=== PATIENT | female | born 1970 | race Caucasian/White ===

== ENCOUNTER → 2017-01-02 | Outpatient (CLI) | payer MEDICARE ==
[~2017-01-02] MED LIST: ****K-Phos500 MG PO; ALLERGY MEDICAT25 MG PO; AMBIEN5 MG PO; AMITRIPTYLINE10 MG PO; AMLODIPINE BESYL5 MG PO; AMOXICILLIN500 M1 PO; AMOXIL500 MG PO; ARTHRITIS PAI42.5 GM TP; ASPIR-LOW81 MG PO; ASPIRIN FOR CHI81 MG PO; ASPIRIN PO; ASPIRIN81 M1 PO; ATIVAN0.5 MG; ATIVAN0.5 MG PO; AUGMENTIN 875875 MG PO; AVELOX400 MG PO; BACTRIM DS 8001 TA1 PO; BACTROBAN2% TP; BENADRYL25 M1 PO; BENADRYL25 M2 PO; BENADRYL25 MG PO; BUSPAR15 MG PO; BUSPIRONE HCL10 MG PO; BUSPIRONE10 MG PO; CIPRO250 MG PO; CIPRO500 MG PO; CIPRODEX 0.3%-7.5 ML OT; CIPROFLOXACIN250 MG PO; CIPROFLOXACIN500 MG PO; CLEOCIN HCL150 MG PO; CLEOCIN150 MG PO; COMPAZINE10 MG PO; COUMADIN4 M2 PO; CYCLOBENZAPRINE10 MG PO; DARVOCET N 1001 TAB PO; DIFLUCAN150 MG PO; Depakote250 MG PO; EC NAPROSYN375 MG PO; EFFEXOR PO; ESTROVEN; ESTROVEN PO; FLAGYL500 MG PO; FLEXERIL10 MG PO; FLORASTOR250 MG PO; FLUCONAZOLE100 MG PO; FOLIC ACID1 MG PO; GABAPENTIN300 MG PO; HEPARIN SC; HEPARIN SOD IV; HYDROCODONE BIT1 T11 PO; IMODIUM2 MG PO; KAYEXALATE15 GM/60 M; KEFLEX 500 MG E2 CAP PO; KEFLEX500 MG PO; LACTAID1 TAB; LACTAID1 TAB PO; LACTAID3000 U PO; LASIX40 MG PO; LEVAQUIN250 M1 PO; LEVOFLOXACIN500 MG PO; LEXAPRO20 MG PO; LIPITOR40 MG PO; LOMOTIL 0.025 M1 TA1 PO; LOMOTIL,LONOX 01 TAB PO; LORAZEPAM0.5 MG PO; MACROBID100 M1 PO; MANNITOL IV; MAPAP325 MG PO; MASON NATURAL2000 IU PO; MEDROL DOSEPAK4 MG PO; MELATONIN3 MG PO; METHOCARBAMOL750 M1 PO; MIRALAX POWDER17 G1 PO; MIRALAX POWDER255 GM PO; NAPROSYN375 MG PO; NATURE'S BLEND F1 MG PO; NEPHRO-VITE1 TA1 PO; NEURONTIN100 MG PO; NEURONTIN300 MG PO; NICODERM C21 MG/242 TD; NICOTINE T21 MG/24 H T; NORCO 5-325 TA1 EACH PO; NORMAL SALINE F10 ML IV; NYSTATIN60 GM T; OMEPRAZOLE D/R20 MG PO; ONDANSETRON4 MG PO; OXYCODONE AND A1 T13 PO; PERCOCET 325 MG1 TA2 PO; PERCOCET 325 MG1 TA5 PO; PHENERGAN25 M1 PO; PHENERGAN25 M3 PO; PRILOSEC20 MG PO; PROTONIX40 MG PO; PROZAC10 MG PO; RENVELA800 MG PO; RITE AID BRAND650 MG PO; TINACTIN T; TOBREX OPHTH S2.5 ML OPH; TORADOL10 MG PO; TYLENOL W/CODEI1 TA2 PO; TYLENOL325 M1 PO; TYLENOL325 MG R; ULTRAM50 MG PO; VICODIN 5/500 505 MG PO; VICODIN 500 MG-1 TAB PO; VITAMIN D32000 I1 PO; XARE20MG PO; ZOFRAN ODT4 MG SL; ZOFRAN2 MG/ML IV; ZOFRAN4 MG PO; ZOSYN 2/0.252.25 GM IV; ZYVOX600 MG PO; Zofran4 MG PO; [UNRECOGNIZED DRUG - OTHER]; [UNRECOGNIZED DRUG - OTHER] PO; [UNRECOGNIZED DRUG - OTHER] PO; [UNRECOGNIZED DRUG - OTHER] TP; [UNRECOGNIZED DRUG - REMARK] IV
--- NOTE | ~2017-01-02 | WRIGHTHP ---
[place], [place] PATIENT HISTORY AND PHYSICAL EXAM [id number] UNIT #: [id number] ROOM: DOCTOR: NATHANAEL TINSLEY M.D. BIRTHDATE: [birth year] DOS: 01/02/2017 This is a new wound care evaluation. CHIEF COMPLAINT: Pressure ulcers of the buttock area. HISTORY OF PRESENT ILLNESS: This is a 46-year-old female with a history of spina bifida who apparently was admitted to [facility] for electrolyte abnormalities. She apparently had missed a couple of episodes of dialysis and had been transferred to [facility] for further management. During her stay there, she had seizures and according to the patient, had developed new pressure ulcers. She says she did not have them when she was admitted, but she states she was lying in bed most of the time and these wounds have started since then, so they have been present for approximately 2 weeks now. She has been using Calmoseptine on them without any improvement. PAST MEDICAL HISTORY: Significant for history of DVT of the left lower extremity, hyperlipidemia, history of sinusitis, history of abdominal hernia, GERD, chronic renal failure on dialysis Monday, Monday, and Monday. She has a history of noncompliance. She has a history of chronic UTIs. She has a history of kidney stones. She has had pressure ulcers in the past that were according to the patient requiring surgical flaps, also not just of the buttock area, but also of the labia area. She has had plastic surgery there as well. She has a history of chronic lumbar pain and a history of spina bifida, osteoarthritis, a history of TIA, history of insomnia, anxiety, depression. She has a urostomy, abdominal hernia repair, spinal fusion, SUBSTANCE ABUSE SERVICES DIRECTOR shunt nephrectomy, cholecystectomy, AV fistula and a colostomy. She had several of her surgeries done according to the patient with her skin flaps for her wounds done at [place]. FAMILY HISTORY: Significant for cancer and hypertension as well as heart disease in her father. SOCIAL HISTORY: She is a current everyday smoker. She is single, does not drink alcohol and she lives alone. She does have home health who comes in, she says twice a day, it is not quite clear, if they are RNs or aides who come in. REVIEW OF SYSTEMS: She says she does not have any feeling in the buttock area, did complaints of a poor appetite. Denies any chest pains or shortness of breath. No nausea or vomiting. She is alone. During the day most of the time, she says she sits in her wheelchair for several hours all day by herself. She says she is able to manage to maneuver her body at times while she is in the chair, but it does sound like she has very limited mobility. ALLERGIES: Her allergies are multiple and include A and D OINTMENT, CODEINE, EFFEXOR, GOLD UREÑA, IBUPROFEN, OXYCODONE, TAPE, all except paper tape, TEMAZEPAM AND VANCOMYCIN. MEDICATIONS FOLLOWS: She is on adult low dose aspirin 81 daily, Lipitor 20 daily, Ambien 5 mg at bedtime, and Lexapro 20 daily. [place], [place] PATIENT HISTORY AND PHYSICAL EXAM NAME: CORINNE METZ UNIT #: [id number] ROOM: DOCTOR: NATHANAEL TINSLEY M.D. BIRTHDATE: [birth year] PHYSICAL EXAMINATION: GENERAL: This lady is in no acute distress. She appears chronically ill and debilitated, pleasant and cooperative. HEENT: I do not appreciate any JVD. LUNGS: Clear. CARDIOVASCULAR: S1, S2, regular rate and rhythm. ABDOMEN: Soft. EXTREMITIES: She has some edema noted of the left lower extremity. She says this is chronic and not unusual and there is no calf pain. She has several wounds that are noted on the buttock area and one is on the right gluteus, it is measuring 1 x 0.4 x 0.1, another one that is distally more is 1.1 x 2 x 0.1, another one that is measuring 0.5 x 2 x 0.1 that is in the labial area, left labia area. The other one is on the right labial area is 0.5 x 2.5 x 0.1. On the left gluteal fold, it is measuring 2.6 x 1 x 0.1. There is a moderate amount of fibrin slough present on the left gluteal fold wound. There is minimal fibrin slough present in the right gluteal wounds. There is also some fibrin slough present on some of the labial wounds as well. A debridement was done of the larger gluteal wound on the left side. This is a selective debridement only. The tissue removed was fibrin and slough. This was accomplished with a curette. There was really minimal bleeding. Post-debridement measurements are unchanged except for the depth of 0.2. LABORATORY DATA: Her last white count, this was done in early December was 16.9, hemoglobin was 12, and platelets are 270. She had sodium of 155, bicarb of 8. Her BUN was 148. Her creatinine was 8.24. The glucose was 80. Lactic acid levels were 2.7. I do not see an albumin at all. ASSESSMENT AND PLAN: Multiple pressure ulcers at least stage 3. We cannot entirely see the base of the wound on the left buttock area, so I would classify this one is unstageable, but most of them appear to be at least stage 3. We will use TheraHoney for the areas for now. I think we can get a foam on the wounds on the buttock and these could be changed every other day. The other, we can just apply some TheraHoney to the wounds on the labial area. I would like to get the records from her surgeries to see what they have done for her. She is alone most of the time during the day and this is going to be a challenge on trying to get her offloaded. She does not have a special mattress, so we will go ahead and order a low air loss mattress and see if we can get her a Roho cushion for her wheelchair, but offloading is definitely going to be a challenge, so we may have to discuss with her other options regarding this for further management if we have a hard time getting these wounds healed. The patient is to follow up with us in 1 week. [place], [place] PATIENT HISTORY AND PHYSICAL EXAM NAME: CORINNE METZ UNIT #: [id number] ROOM: DOCTOR: NATHANAEL TINSLEY M.D. BIRTHDATE: [birth year] NATHANAEL TINSLEY MD CM:HISPHYS:PATIENT HISTORY AND PHYSICAL EXAMINATION [id number] NATHANAEL TINSLEY M.D. 01/02/172010 interface
== END ==
LOC: WOUNDCARE 10:08
DX: L89.323 Pressure ulcer of left buttock, stage 3 (principal); L89.313 Pressure ulcer of right buttock, stage 3; Q05.9 Spina bifida, unspecified; K21.9 Gastro-esophageal reflux disease without esophagitis; E78.5 Hyperlipidemia, unspecified; M19.90 Unspecified osteoarthritis, unspecified site; F41.9 Anxiety disorder, unspecified; F32.9 Major depressive disorder, single episode, unspecified; N18.9 Chronic kidney disease, unspecified; F17.210 Nicotine dependence, cigarettes, uncomplicated; Z99.2 Dependence on renal dialysis; Z86.73 Personal history of transient ischemic attack (TIA), and cerebral infarction without residual deficits; Z86.718 Personal history of other venous thrombosis and embolism

== ENCOUNTER 2017-01-06 12:25 | Inpatient (IN) | payer MEDICARE ==
[~2017-01-06] VITALS: Ht 134.6 cm; Wt 33.2 kg
--- NOTE | ~2017-01-06 | CON ---
[place], [place] REPORT OF CONSULTATION NAME: CORINNE METZ UNIT #: [id number] ROOM: 507 DOCTOR: PHI MURO MD BIRTHDATE: [birth year] DOS: 01/07/2017 HISTORY OF PRESENT ILLNESS: Management of dialysis. The patient is a 46-year-old female. She is known to our service. She has a history of end-stage renal disease, thought to be related to chronic obstructive neuropathy due to her spina bifida. The patient has scheduled dialysis Monday and Monday at the [facility]. Her access is right upper extremity AV fistula. The patient has noncompliance and has missed treatments very frequently. In fact, she has not been dialyzed it seems in about 2 weeks. I had discussed with the dialysis nurse this morning to have the patient dialyze since she missed multiple treatments and the patient refused this morning. She had a recent admission to [facility] which she was seen by our service at that time and she actually has not come back to the outpatient clinic since. Apparently, the patient was sent in the hospital due to concerns about her pressure ulcers. She has been started on antibiotics. She told me she felt fine otherwise. She denied nausea, vomiting, or shortness of breath. She is chronically bed bound. She does have a history of a colostomy and has large stool outputs at times. When she presented, she had mild hyperkalemia and metabolic acidosis. ALLERGIES: LISTED TO VANCOMYCIN, TAPE, CODEINE. MEDICATIONS: Reviewed. It is not clear if she is compliant with her home prescribed medications. PAST MEDICAL HISTORY: 1. End-stage renal disease, details as above. 2. Osteoarthritis. 3. Chronic back pain. 4. History of DVT. 5. Depression. 6. Fatigue. 7. GERD. 8. History of GI bleed and anemia. 9. History of TIA. 10. The patient is chronically bed bound due to spina bifida. 11. Hyperlipidemia. 12. Insomnia. 13. Kidney stones. 14. Vitamin D deficiency. 15. Back surgery. 16. Cholecystectomy. 17. Colostomy. 18. History of unilateral nephrectomy on the right. 19. History of urostomy. 20. History of foot surgery. 21. CUSTOMER SOLUTIONS ARCHITECT shunt. FAMILY HISTORY: Negative for chronic kidney disease. Otherwise, noncontributory. [place], [place] REPORT OF CONSULTATION NAME: CORINNE METZ UNIT #: [id number] ROOM: 507 DOCTOR: PHI MURO MD BIRTHDATE: [birth year] SOCIAL HISTORY: No alcohol or illicit drugs. She does have a history of tobacco abuse. REVIEW OF SYSTEMS: As per HPI. Otherwise, a 10-point review of systems was reviewed and was negative. PHYSICAL EXAMINATION: VITAL SIGNS: Temperature is 98.2, pulse 80, respiratory rate 18, blood pressure 126/76. GENERAL: She is awake, alert, resting comfortably, in no acute distress. HEENT: Shows no JVD. Sclerae are anicteric. Mucous membranes were moist. Pharynx was clear. NECK: Supple. Trachea is midline. There is no lymphadenopathy. There is no thyromegaly. LUNGS: Diminished breath sounds. No appreciable wheezes. No tactile fremitus. She is not using accessory muscles of respiration. HEART: Normal S1, S2. No rub, thrill, or gallop. ABDOMEN: Soft, nontender. There is no organomegaly or rigidity. There is no rebound or guarding. EXTREMITIES: Had trace edema. There is no lower extremity lymphadenopathy. Distal pulses were present. SKIN: Showed no overt rash. There is no purpura. Skin temperature was warm. NEUROLOGIC: She was awake, alert, and following commands. LABORATORY DATA: Hemoglobin 10.9, white count of 5.9, platelets of 199. BUN 68, creatinine 6.6, sodium 143, potassium 5.7, CO2 of 14, calcium 8.1, phosphorus 6.0, magnesium 1.9, albumin of 2.1. IMPRESSION: 1. End-stage renal disease, on hemodialysis, prescribed Monday and Monday through an upper extremity arteriovenous fistula. 2. Metabolic acidosis. 3. Decubitus ulcers. 4. Anemia of chronic disease. 5. History of spina bifida. 6. Noncompliance, which is a continued issue. PLAN: 1. The patient has refused dialysis today. She continues to refuse and states that today is not her normal day. I explained to her that I do not advice this and she continues to be adamant that she did not want dialysis because it was not her day and she was not able to have her Emla cream for the treatment. Hopefully, she will be agreeable to treatment on Monday. 2. In regards to her hyperkalemia, she does have a significant metabolic acidosis. I will order oral bicarbonate tablets and give 1 L of bicarbonate infusion to see if this helps correct both those items. 3. Placed on a renal diet. 4. Dose meds for dialysis dependent renal failure. 5. Farnaz forward, I am not clear what more we can do for this patient. She [place], [place] REPORT OF CONSULTATION NAME: CORINNE METZ Juan UNIT #: [id number] ROOM: 507 DOCTOR: JINA GROVE,PHI Mooney BIRTHDATE: [birth year] continues to be noncompliant and has a poor understanding of her situation. We will continue to be available to provide supportive care while she is in the hospital. Thank you for this consultation. PHI MURO MD CM:CONSTR:REPORT OF CONSULTATION 1520 01/07/17 1619 interface
--- NOTE | ~2017-01-06 | PR ---
[place], [place] PROGRESS NOTE NAME: CORINNE METZ UNIT #: [id number] ROOM: 507 DOCTOR: PHI MURO MD BIRTHDATE: [birth year] DOS: SUBJECTIVE: The patient was seen and examined. She is awake and alert. She feels about the same. She states she feels tired and cold. She is receiving her IV fluids I have ordered yesterday. She did not have laboratory data today. PHYSICAL EXAMINATION: VITAL SIGNS: Showed a temperature of 98.2, pulse 86, respiratory rate 18, blood pressure 126/76. HEENT: Shows no jugular venous distention. LUNGS: Diminished breath sounds. No wheeze. HEART: Normal S1, S2. ABDOMEN: Soft, nontender. EXTREMITIES: Trace edema. SKIN: Showed no rash as noted. LABORATORY DATA: Not obtained from today. Hemoglobin from yesterday 10.9, potassium 5.7, carbon dioxide 14. IMPRESSION AND PLAN: 1. End-stage renal disease, on hemodialysis Monday and Monday. The patient remains noncompliant. I explained to her that I recommend that she have dialysis tomorrow. She did not seem that she still was agreeable to this. I explained to her the dangers with her hyperkalemia and acidosis and elevated BUN and creatinine and she stated to me that she will not have dialysis "cold turkey." I was not clear which she meant by this. She did indicate to me that she needs to have her Amylac cream placed before dialysis starts. We will attempt to see if we can have this arranged for awhile in the hospital. 2. Anemia. Continue to give as needed, erythropoietin stimulating agents with dialysis as able. 3. Metabolic acidosis with mild hyperkalemia. Hopefully, we can correct this with dialysis. She did receive a liter of a bicarb infusion to help correct this. Follow a low potassium diet while in the hospital. She is on oral bicarb tablets as well. 4. Suspected wound infection. Antibiotics as per the primary service. [place], [place] PROGRESS NOTE NAME: CORINNE METZ UNIT #: [id number] ROOM: 507 DOCTOR: PHI MURO MD BIRTHDATE: [birth year] PHI MURO MD CM:PNTRANS [id number] PHI MURO MD 01/08/17 1808 interface
[2017-01-06 12:35] VITALS: BP 108/71
[2017-01-06 13:00] VITALS: BP 122/72
[2017-01-06] MEDS ORDERED: RENVELA800 MG PO (15:58)
[2017-01-06 16:00] VITALS: BP 138/73
[2017-01-06] MEDS ORDERED: ACETAMINOPHEN-H1 TA2 PO (16:00)
[2017-01-06] MEDS ORDERED: ATORVASTATIN CA40 M1 PO (16:00)
[2017-01-06] MEDS ORDERED: NATURE'S BLEND F1 MG PO (16:02)
[2017-01-06] MEDS ORDERED: VITAMIN D50000 I3 PO (16:02)
[2017-01-06] MEDS ORDERED: BAYER ASPIRIN C81 MG PO (16:02)
[2017-01-06] MEDS ORDERED: RENA-VITE1 TAB PO (16:04)
[2017-01-06 18:13] LABS: BASO % 0.6 % (0.0-1.0); EOS # 0.1 10*3/uL (0.0-0.4); EOS % 1.7 % (1.0-4.0); HEMATOCRIT 34.8 % (37.0-47.0); HEMOGLOBIN 10.7 g/dl (12.0-16.0); IG # 0.1 10*3/uL (0.0-0.1); LYMPH # 1.1 10*3/uL (1.3-4.4); LYMPH % 15.2 % (27.0-41.0); MEAN CELL VOLUME 90.6 fl (81.0-99.0); MEAN CORPUSCULAR HGB 27.9 pg (27.0-31.0); MEAN CORPUSCULAR HGB CONC 30.7 g/dl (33.0-37.0); MEAN PLATELET VOLUME 10.1 fl (9.6-12.3); MONO # 0.5 10*3/uL (0.1-1.0); MONO % 6.6 % (3.0-9.0); NEUT # 5.2 10*3/uL (2.3-7.9); NEUT % 75.2 % (47.0-73.0); PLATELET COUNT AUTOMATED 187 10*3/uL (130-400); RED BLOOD COUNT 3.84 10*6/uL (4.10-5.10); RED CELL DISTRI WIDTH 16.8 % (0-14.5)
[2017-01-06 18:30] LABS: BILIRUBIN, TOTAL 0.2 mg/dl (0.2-1.0); CKMB 1.7 ng/ml (0.5-3.6); CPK 32 U/L (26-192); POTASSIUM 5.6 mmol/L (3.5-5.1); TOTAL PROTEIN 5.6 gm/dL (6.4-8.2)
[2017-01-06 18:31] LABS: TROPONIN I < 0.015 ng/ml (<0.045)
[2017-01-06 20:00] VITALS: BP 127/73
[2017-01-07] VITALS: BP 130/77
[2017-01-07 00:20] LABS: CKMB 1.5 ng/ml (0.5-3.6); CPK 28 U/L (26-192); TROPONIN I < 0.015 ng/ml (<0.045)
[2017-01-07 06:22] LABS: BASO % 0.7 % (0.0-1.0); EOS # 0.2 10*3/uL (0.0-0.4); EOS % 2.9 % (1.0-4.0); HEMATOCRIT 35.8 % (37.0-47.0); HEMOGLOBIN 10.9 g/dl (12.0-16.0); LYMPH # 1.3 10*3/uL (1.3-4.4); MEAN CELL VOLUME 91.6 fl (81.0-99.0); MEAN CORPUSCULAR HGB 27.9 pg (27.0-31.0); MEAN CORPUSCULAR HGB CONC 30.4 g/dl (33.0-37.0); MEAN PLATELET VOLUME 10.4 fl (9.6-12.3); MONO # 0.5 10*3/uL (0.1-1.0); MONO % 7.8 % (3.0-9.0); NEUT # 3.9 10*3/uL (2.3-7.9); NEUT % 66.3 % (47.0-73.0); PLATELET COUNT AUTOMATED 199 10*3/uL (130-400); RED BLOOD COUNT 3.91 10*6/uL (4.10-5.10); RED CELL DISTRI WIDTH 17.1 % (0-14.5); WHITE BLOOD COUNT 5.9 10*3/uL (4.8-10.8)
[2017-01-07 06:31] LABS: ALBUMIN 2.1 gm/dl (3.1-4.5); BILIRUBIN, TOTAL 0.3 mg/dl (0.2-1.0); FREE T4 0.91 ng/dl (0.76-1.46); MAGNESIUM 1.9 mg/dL (1.5-2.1); POTASSIUM 5.7 mmol/L (3.5-5.1); TOTAL PROTEIN 5.4 gm/dL (6.4-8.2)
[2017-01-07 06:34] LABS: CKMB 1.5 ng/ml (0.5-3.6); CPK 24 U/L (26-192)
[2017-01-07 06:35] LABS: TROPONIN I < 0.015 ng/ml (<0.045)
[2017-01-07 06:37] LABS: THYROID STIM HORMONE (HS) 2.68 uIU/ml (0.358-4.75)
[2017-01-07 06:52] LABS: INTERNATIONAL NORM RATIO 1.1 (2.0-3.5); PROTHROMBIN TIME 11.4 SECONDS (9.0-12.4)
[2017-01-07 07:17] LABS: HEMOGLOBIN A1c 4.4 % (4.8-5.6)
[2017-01-07 07:37] LABS: FOLIC ACID 21.77 ng/mL (>5.38)
[2017-01-07 08:00] VITALS: BP 136/72
[2017-01-07 12:00] VITALS: BP 126/76
[2017-01-07 16:00] VITALS: BP 114/63
[2017-01-07 20:00] VITALS: BP 141/87
[2017-01-08] VITALS: BP 124/77
[2017-01-08 08:00] VITALS: BP 126/76
[2017-01-08 12:00] VITALS: BP 130/62
[2017-01-08 16:00] VITALS: BP 126/76
== END 2017-01-08 17:33 | disposition home or self-care (01) | DRG 592 ==
LOC: ED 12:25 → 5E 12:54
PROVIDERS: Internal Medicine
DX: L89.159 Pressure ulcer of sacral region, unspecified stage (principal); N18.6 End stage renal disease; E43 Unspecified severe protein-calorie malnutrition; E87.2 Acidosis; Z68.1 Body mass index [BMI] 19.9 or less, adult; K21.9 Gastro-esophageal reflux disease without esophagitis; F32.9 Major depressive disorder, single episode, unspecified; F41.9 Anxiety disorder, unspecified; E78.5 Hyperlipidemia, unspecified; F17.210 Nicotine dependence, cigarettes, uncomplicated; G89.29 Other chronic pain; M54.9 Dorsalgia, unspecified; E87.5 Hyperkalemia; E83.39 Other disorders of phosphorus metabolism; D63.1 Anemia in chronic kidney disease; M19.90 Unspecified osteoarthritis, unspecified site; Z82.49 Family history of ischemic heart disease and other diseases of the circulatory system; Z86.73 Personal history of transient ischemic attack (TIA), and cerebral infarction without residual deficits; Z99.2 Dependence on renal dialysis; Z91.15 Patient's noncompliance with renal dialysis; Q05.9 Spina bifida, unspecified; Z90.5 Acquired absence of kidney; Z87.440 Personal history of urinary (tract) infections; Z90.49 Acquired absence of other specified parts of digestive tract; Z86.718 Personal history of other venous thrombosis and embolism; Z87.442 Personal history of urinary calculi; Z83.6 Family history of other diseases of the respiratory system; Z84.89 Family history of other specified conditions; Z88.1 Allergy status to other antibiotic agents; Z91.048 Other nonmedicinal substance allergy status; Z88.5 Allergy status to narcotic agent; Z88.8 Allergy status to other drugs, medicaments and biological substances; Z71.6 Tobacco abuse counseling; Z79.82 Long term (current) use of aspirin; Z79.899 Other long term (current) drug therapy

== ENCOUNTER → 2017-01-17 | Outpatient (CLI) | payer MEDICARE ==
[~2017-01-17] MED LIST changes: +ACETAMINOPHEN-H1 TA2 PO; +ATORVASTATIN CA40 M1 PO; +BAYER ASPIRIN C81 MG PO; +RENA-VITE1 TAB PO; +VITAMIN D50000 I3 PO
--- NOTE | ~2017-01-17 | PR ---
[place], [place] PROGRESS NOTE NAME: CORINNE METZ UNIT #: [id number] ROOM: DOCTOR: ALVINA ReynosoNATHANAEL BIRTHDATE: [birth year] DOS: 01/17/2017 This is a wound care followup. CHIEF COMPLAINT: Pressures ulcers of the buttock area and labial area. HISTORY OF PRESENT ILLNESS: A 46-year-old female with a history of spina bifida who has been seen one time in the Wound Clinic for pressure ulcers of the buttock and labial area that have been present for approximately 4 weeks now. They started out when she was in the hospital at [facility] and she has been to the Wound Clinic one time. We have advised TheraHoney and a foam dressing to be applied. She does have home health who changes them every other day. She does not have an air mattress for a cushion for her wheelchair. Her lower half of her body is immobile. She is unable to really move herself. Once she is in a seated positioned in the daytime, she stays like that for several hours until someone comes and moves her, although she does have some movement in her arms and is able to reposition her just a little minute miniscule movements she is able to do on her own. She was admitted to the hospital recently for bacteremia and has not been going to her scheduled dialysis all the time as has been scheduled. PHYSICAL EXAMINATION: VITAL SIGNS: As follows: Temp is 98.4, pulse is 66, respirations 18, blood pressure is 110/62. WOUND EXAMINATION: Several of the wounds just on glancing at them, they do appear improved. Wound #10 is on the right gluteal fold, it is measuring a little bit longer, 1.4 x 0.2 x 0.1, but it appears quite improved since last time. The wound on her right gluteus is measuring much smaller, it is 0.5 x 1.5 x 0.1 and there is really no visible necrotic tissue present. The wound #12 is also measuring smaller at 0.4 x 1.8 x 0.1. No visible necrotic tissue that is in the labial area. Wound #13, is measuring smaller at 0.3 x 1.3 x 0.1. Wound #9, is measuring a little bit larger, but does appear quite a bit improved from the last time I have seen it. The length is 2.6 x 1.5 x 0.1 and that measurement is including a smaller area next to it, but overall it looks really good. There is still some fibrin and slough moderate amount present. This area was debrided through subcutaneous tissue. The tissue removed was fibrin, slough and subcutaneous tissue. There was a moderate amount of bleeding that was controlled with pressure. Post-debridement measurements are unchanged. There was a moderate amount of bleeding that was controlled with pressure. Cetacaine spray was used for topical anesthesia and a timeout was conducted prior to the start of the procedure. ASSESSMENT AND PLAN: Multiple pressure ulcers, stage 2 and stage 3 that are definitely seem to be responding to the TheraHoney. We will continue with this dressing for now. There are no signs of an active infection clinically with any of the wounds. I did advise her to eat a healthy diet. She is to get blood work that has been ordered by her PCP, hopefully we will get the results soon about this. I did mention that if for some reason, the wounds stall or get worse if she would be inclined to going into a detention facility for a short period of time, so she can be properly offloaded. She is pretty adamant [place], [place] PROGRESS NOTE NAME: ISAÍASCORINNE A UNIT #: [id number] ROOM: DOCTOR: NATHANAEL TINSLEY M.D. BIRTHDATE: [birth year] about not wanting this at this time, so she does not wish to further discuss it at this time. We have ordered a low air loss mattress and Roho cushion for her, which had to go through the primary care to order it secondary to her insurance. Followup next week. NATHANAEL TINSLEY MD CM:AMADEO [id number] NATHANAEL TINSLEY M.D. 01/18/17 0134 interface
[2017-01-17 12:39] LABS: BASO # 0.1 10*3/uL (0.0-0.1); BASO % 0.9 % (0.0-1.0); EOS # 0.5 10*3/uL (0.0-0.4); EOS % 6.6 % (1.0-4.0); HEMATOCRIT 35.7 % (37.0-47.0); HEMOGLOBIN 11.1 g/dl (12.0-16.0); LYMPH # 1.1 10*3/uL (1.3-4.4); LYMPH % 14.2 % (27.0-41.0); MEAN CELL VOLUME 89.5 fl (81.0-99.0); MEAN CORPUSCULAR HGB 27.8 pg (27.0-31.0); MEAN CORPUSCULAR HGB CONC 31.1 g/dl (33.0-37.0); MEAN PLATELET VOLUME 11.9 fl (9.6-12.3); MONO # 0.4 10*3/uL (0.1-1.0); MONO % 5.2 % (3.0-9.0); NEUT # 5.6 10*3/uL (2.3-7.9); NEUT % 72.7 % (47.0-73.0); PLATELET COUNT AUTOMATED 150 10*3/uL (130-400); RED BLOOD COUNT 3.99 10*6/uL (4.10-5.10); RED CELL DISTRI WIDTH 16.8 % (0-14.5); WHITE BLOOD COUNT 7.7 10*3/uL (4.8-10.8)
[2017-01-17 13:10] LABS: ALBUMIN 2.2 gm/dl (3.1-4.5); BILIRUBIN, TOTAL 0.2 mg/dl (0.2-1.0); POTASSIUM 5.7 mmol/L (3.5-5.1); TOTAL PROTEIN 5.7 gm/dL (6.4-8.2)
== END | disposition home or self-care (01) ==
LOC: WOUNDCARE 10:12 → LAB 10:12
PROVIDERS: Nurse Practitioner Family
DX: N18.5 Chronic kidney disease, stage 5 (principal); L89.309 Pressure ulcer of unspecified buttock, unspecified stage; L03.90 Cellulitis, unspecified; Q05.9 Spina bifida, unspecified

== ENCOUNTER → 2017-02-08 | Outpatient (CLI) | payer MEDICARE ==
--- NOTE | ~2017-02-08 | PR ---
[place], [place] PROGRESS NOTE NAME: CORINNE METZ UNIT #: [id number] ROOM: DOCTOR: ALVINA ReynosoNATHANAEL BIRTHDATE: [birth year] DOS: 02/08/2017 WOUND CARE FOLLOWUP CHIEF COMPLAINT: Multiple pressure ulcers of the buttock and labial area. The patient has a history of spina bifida, who has had multiple pressure ulcers that were present for approximately the past 9 weeks now. She has only followed up sporadically in the Wound Clinic. She is a dialysis patient who lives by herself. She is pretty immobile and unable to get around by herself at home. She does have home health coming in every other day to help remove. She was said she was supposed to have an aide to help remove daily; however, she states that her landlord would not let them come into her house. This part is a bit unclear. We had ordered a Roho cushion for her and an air mattress; however, insurance did not approve it and we are waiting to see if we can get it from another medical facility or medical supply store. Hopefully, this will be arranged as soon as possible. She has no specific complaints. She said she has not been keeping up with dialysis and going as scheduled as she has been depressed lately and has been started on new antidepressants per PCP. She has no particular complaints with the wounds. We have not heard any issues from home health either. OBJECTIVE: VITAL SIGNS: As follows: She is afebrile, pulse is 88, respirations 18, blood pressure is 124/64. BACK: She has multiple wounds that are noted. There was a wound on the right gluteal area that appears to be epithelialized; wound #11, which is in the distal gluteal area is much improved at 0.5 x 1 x 0.1. There is no visible necrotic tissue present. There is an area on the left labia, which is also smaller and improving at 0.4 x 1 x 0.1. There was no necrotic tissue. Wound #13 is on the right labia and is also improving at 0.5 x 1.2 x 0.1. The left gluteal wound still fairly large, but also improving at 2.1 x 0.7 x 0.1. They are measuring the depth at 0.1, but I would say is slightly deeper at 0.15. There is a large amount of fibrin slough present. This wound was debrided last time. Debridement was done of this wound. The tissue removed was nonviable fibrin and slough only. There was [id number] amount of bleeding that was controlled with pressure. Post-debridement measurements are unchanged, except for the depth of 0.15. The curette was utilized. ASSESSMENT AND PLAN: Multiple pressure ulcers in this patient who is immobile and lives alone. We have discussed with her in the past about possibly a trial at [facility] to help with offloading; however, she was fairly adamant and had refused this. She has not followed up consistently in the wound clinic, but overall, most of her wounds are getting smaller. We will continue with the TheraHoney and foam dressings for the larger wounds on the gluteal area, TheraHoney to the labial area as before. There are no signs of infection. Hopefully, she will get her offloading devices send as soon as possible. She does have home health coming in for dressing changes. She did mention how her landlords refusing to have home health aides coming in to help her, so I will reach out to home health and see if they have anymore information regarding [place], [place] PROGRESS NOTE NAME: CORINNE METZ UNIT #: [id number] ROOM: DOCTOR: NATHANAEL TINSLEY M.D. BIRTHDATE: [birth year] this. Follow up with the wound clinic in 1 week. NATHANAEL TINSLEY MD CM:AMADEO [phone] NATHANAEL TINSLEY M.D. 02/09/17 0901 interface
== END ==
LOC: WOUNDCARE 01:16
DX: L89.322 Pressure ulcer of left buttock, stage 2 (principal); L89.313 Pressure ulcer of right buttock, stage 3; Q05.9 Spina bifida, unspecified; I48.91 Unspecified atrial fibrillation

== ENCOUNTER → 2017-02-15 | Outpatient (CLI) | payer MEDICARE ==
[~2017-02-15] MED LIST changes: +BUSPAR5 MG PO; +DESVENLAFAXINE50 M4 PO
--- NOTE | ~2017-02-15 | PR ---
[place], [place] PROGRESS NOTE NAME: [id number] UNIT #: [id number] ROOM: DOCTOR: ALVINA ReynosoNATHANAEL BIRTHDATE: [birth year] DOS: 02/15/2017 WOUND CARE FOLLOWUP CHIEF COMPLAINT: Multiple pressure ulcers of the buttocks and labial area. HISTORY OF PRESENT ILLNESS: The patient has a history of spina bifida. She has had multiple pressure ulcers for the past 10 weeks now. She has been following up in the Wound Clinic fairly consistently now for the past 3 weeks. She has no specific complaints regarding the wounds. She has not received the Roho cushion that we have ordered, which apparently there was some problem with her insurance. She did state that she is going to be getting a new wheelchair, so hopefully, this will help alleviate some of the pressure points as well. She has no other specific complaints regarding the wounds. She does report that her appetite is not good and she does not eat well. PHYSICAL EXAMINATION: VITAL SIGNS: Temperature is 98.2, pulse of 78, respirations 18, blood pressure is 122/80. EXTREMITIES: The wound #11, which is on the distal gluteus is measuring 0.3 x 1 x 0.1. It looks clean. There is no necrotic tissue. Wound #12 is also measuring smaller 0.4 x 0.8 x 0.1. Wound #13 is measuring 0.4 x 1.2 x 0.1 and wound #9 is measuring 1.6 x 0.8 x 0.1. There is still a moderate amount of fibrin slough present on this wound. The other wounds have clean bases. Debridement was done of this wound, which is in the left gluteus. The tissue removed was fibrin and slough. This was a selective debridement only. There was no bleeding. The patient tolerated the debridement well. Post-debridement measurements are unchanged. A curette was utilized. ASSESSMENT AND PLAN: Multiple pressure ulcers, which are slowly healing. Offloading is a challenge. We have ordered mattresses for her and a Roho cushion, which still has not been delivered to her house yet and hopefully, she will be able to get this soon. Most recent protein level was 5.7, albumin is 2.2. BUN is 73 and creatinine is 7.62. She is a renal dialysis patient. Multiple pressure ulcers, mostly stage II and stage III, most of them are clean. There is only one really with some necrotic tissue present. We will continue with RejiRossyeduardo since it seems to be improving the wounds slowly, but steadily. I encouraged the patient to also eat a healthy diet and do not skip dialysis appointments. The patient is to follow up in the Wound Clinic in one week. Hopefully, she will be able to get some of her offloading devices as soon as possible. [place], [place] PROGRESS NOTE NAME: CORINNE METZ UNIT #: [id number] ROOM: DOCTOR: NATHANAEL TINSLEY M.D. BIRTHDATE: [birth year] NATHANAEL TINSLEY MD CM:AMADEO [phone] NATHANAEL TINSLEY M.D. 02/16/17 1620 interface
== END ==
LOC: WOUNDCARE 01:11
DX: L89.323 Pressure ulcer of left buttock, stage 3 (principal); Q05.9 Spina bifida, unspecified

== ENCOUNTER 2017-02-16 12:23 | Emergency (ER) | payer MEDICARE ==
[~2017-02-16] VITALS: Ht 134.6 cm; Wt 29.9 kg
[2017-02-16 12:23] VITALS: BP 158/78
[~2017-02-16 12:23] MED LIST changes: -BUSPAR5 MG PO; -DESVENLAFAXINE50 M4 PO
[2017-02-16] MEDS ORDERED: BUSPAR5 MG PO (12:50)
[2017-02-16] MEDS ORDERED: DESVENLAFAXINE50 M4 PO (12:51)
[2017-02-16] MEDS ORDERED: OMEPRAZOLE D/R20 MG PO (12:53)
[2017-02-16 13:31] LABS: BASO % 0.5 % (0.0-1.0); EOS # 0.1 10*3/uL (0.0-0.4); EOS % 1.4 % (1.0-4.0); HEMATOCRIT 30.4 % (37.0-47.0); HEMOGLOBIN 9.4 g/dl (12.0-16.0); LYMPH % 11.8 % (27.0-41.0); MEAN CELL VOLUME 90.5 fl (81.0-99.0); MEAN CORPUSCULAR HGB CONC 30.9 g/dl (33.0-37.0); MONO # 0.4 10*3/uL (0.1-1.0); MONO % 4.6 % (3.0-9.0); NEUT # 6.9 10*3/uL (2.3-7.9); NEUT % 81.5 % (47.0-73.0); PLATELET COUNT AUTOMATED 169 10*3/uL (130-400); RED BLOOD COUNT 3.36 10*6/uL (4.10-5.10); RED CELL DISTRI WIDTH 19.4 % (0-14.5); WHITE BLOOD COUNT 8.5 10*3/uL (4.8-10.8)
[2017-02-16 13:42] LABS: PROTHROMBIN TIME 10.8 SECONDS (9.0-12.4)
[2017-02-16 13:51] LABS: ALBUMIN 2.6 gm/dl (3.1-4.5); ALKALINE PHOSPHATASE 185 U/L (45-117); BILIRUBIN, TOTAL 0.3 mg/dl (0.2-1.0); BUN 131 mg/dl (7-24); C-REACTIVE PROTEIN 0.31 MG/DL (0-0.3); CHLORIDE 123 mmol/L (98-107); CKMB 2.5 ng/ml (0.5-3.6); CPK 33 U/L (26-192); EST GLOM FILT AFRICAN AMERICAN 6 ml/min; GLUCOSE 113 mg/dL (65-99); MAGNESIUM 2.2 mg/dL (1.5-2.1); POTASSIUM 5.1 mmol/L (3.5-5.1); SGOT/AST 29 IU/L (3-35); SGPT/ALT 35 U/L (12-78); SODIUM 147 mmol/L (136-145)
[2017-02-16 13:53] LABS: CARBON DIOXIDE 8 mmol/L (21-32); TROPONIN I < 0.015 ng/ml (<0.045)
== END 2017-02-16 16:46 | disposition left against medical advice (07) ==
LOC: ED 12:23
PROVIDERS: Nurse Practitioner Family
DX: N18.6 End stage renal disease (principal); Z99.2 Dependence on renal dialysis; E87.2 Acidosis; F17.200 Nicotine dependence, unspecified, uncomplicated; Z90.49 Acquired absence of other specified parts of digestive tract; K21.9 Gastro-esophageal reflux disease without esophagitis; M19.90 Unspecified osteoarthritis, unspecified site; Z86.718 Personal history of other venous thrombosis and embolism; Z86.73 Personal history of transient ischemic attack (TIA), and cerebral infarction without residual deficits; E78.5 Hyperlipidemia, unspecified; Z88.1 Allergy status to other antibiotic agents; Z88.8 Allergy status to other drugs, medicaments and biological substances; Z79.82 Long term (current) use of aspirin; Z79.899 Other long term (current) drug therapy; F41.8 Other specified anxiety disorders

== ENCOUNTER 2017-02-17 15:37 | Inpatient (IN) | payer MEDICARE ==
[~2017-02-17] VITALS: Ht 134.6 cm; Wt 27.7 kg
--- NOTE | ~2017-02-17 | CON ---
[place], [place] REPORT OF CONSULTATION NAME: CORINNE METZ UNIT #: [id number] ROOM: 524 DOCTOR: NATHANAEL TINSLEY M.D. BIRTHDATE: [birth year] DOS: WOUND CARE CONSULTATION CHIEF COMPLAINT: Buttock wound ulcers, coccyx ulcer, and labial pressure ulcers. HISTORY OF PRESENT ILLNESS: This is a 46-year-old female with a history of multiple medical problems that includes spina bifida and chronically bedbound due to this and end-stage renal disease on hemodialysis, who was admitted to the Emergency Department with complaints of headaches that was radiating into her neck severe pain when turning her head, shortness of breath. She has a history of missing several of her dialysis days and has not been dialysed her for 2 weeks, saying that she was too depressed to go. The patient was noted to be markedly acidotic with severe metabolic derangements and was admitted to the ICU for this. Wound Care has been consulted for her pressure ulcers, which we normally have been following her for the past several weeks now. She has had these multiple pressure ulcers for the past 10 weeks. She has been initially she only came to the wound clinic very sporadically, but had been regularly seeing us 3 weeks in a while. We have attempted to order Roho cushion for her and offloading mattress; however, her insurance refused to pay for it. The wounds had been steadily improving and getting smaller. She had a fairly larger wound of the left buttock that had fibrin and slough and had been debrided just recently. It was also noted that she was getting a pressure ulcer right in the coccyx area that was very small size of an eraser head, but that was also starting to be noted as well; however, all the other wound seemed to be improving. She had told us that she had been following regularly with dialysis and had not been eating well either. She did have some home health aide coming in to help her; however, for the rest of the time she was alone and she did have difficulty getting from one position to the next. She did inform me that most of the time during the day, she was in her wheelchair and did not have anybody to help her move about the house or change positions. PAST MEDICAL HISTORY: Remarkable for arthritis; chronic back pain; DVT of left lower extremity; end-stage renal disease, on hemodialysis; GERD; TIA; hypercoagulable state. She is chronically bedbound to spina bifida, insomnia, subarachnoid hemorrhage, tobacco use. She has AV fistula. She has had back surgery, cholecystectomy, colostomy, unilateral nephrectomy. She has a right urostomy, history of foot surgery, and a ventricular shunt in place. SOCIAL HISTORY: She denies alcohol consumption. Denies drug use. She is a smoker, smokes 2 packs per day for 29 years. She lives alone. FAMILY HISTORY: Significant for carbon monoxide poisoning in her mother, myocardial infarction, Parkinson's disease, emphysema in her father, and spina bifida in her brother. ALLERGIES: Multiple including VANCOMYCIN, which causes a rash and itching; TAPE; CODEINE; DIMETHICONE FROM A [facility] D OINTMENT; GLYCERIN FROM A [facility]; AND STERILE ALCOHOL FROM A [facility]. [place], [place] REPORT OF CONSULTATION NAME: CORINNE METZ Juan UNIT #: [id number] ROOM: 524 DOCTOR: NATHANAEL TINSLEY M.D. BIRTHDATE: [birth year] CURRENT MEDICATIONS: That have been ordered are Pristiq 50 mg p.o. daily, Ativan 0.5 mg IV q.8h. p.r.n., albuterol nebs 3 mL q.4 p.r.n., vitamin D 50,000 units once on Monday, aspirin 81 daily, Maxipime 0.5 g IV, Lipitor 40 p.o. daily. She is on an amla patch. She is on Renagel 800 mg p.o. t.i.d., vitamin B complex 1 tablet p.o. daily, sodium bicarbonate 325 p.o. b.i.d., folic acid 1 mg p.o. daily, Prilosec 20 p.o. daily, Ambien 5 mg p.o. at bedtime, BuSpar 5 mg p.o. b.i.d. p.r.n., Zofran 4 mg IV q.6h. p.r.n., milk of mag, Dulcolax, and Tylenol p.r.n. She is on a heparin drip as well. REVIEW OF SYSTEMS: Currently, the only complaint that she states is that she has pain everywhere. She is lying prone. She offers no other specific complaints. She appears quite weak, was noted to be quite lethargic today and was given Narcan earlier. She had dialysis earlier as well. She currently is offering no specific complaints. Other review of systems are unobtainable at this time. OBJECTIVE: VITAL SIGNS: Her temperature is 97.8, her pulse is 118, respirations are 16, blood pressure is 121/64. GENERAL: The patient appears quite ill and debilitated and pale. She is lying prone. She does not appear to be in any respiratory distress. LUNGS: Clear to auscultation bilaterally. CARDIOVASCULAR: S1, S2, regular rate and rhythm, somewhat tachycardic. ABDOMEN: Deferred as the patient is lying prone. EXTREMITIES: She has chronic edema of the right leg. There is no calf tenderness. She does have open ulcers in the buttock area, it is measuring approximately 1.6 x 0.8 x 0.1. There is minimal to moderate fibrin slough present. There is no periwound cellulitis. There is some slight maceration around it. Around the periwound, there is an open ulcer right in the mid coccyx area that is definitely bigger than the last time she had seen her in the wound clinic, that appears fairly new and somewhat bloody that I would say it is measuring 0.5 x 0.5 x 0.2 in depth. There is no surrounding cellulitis. When I pressed around it, I asked her any pain and she denies it. She has several other open ulcers that are fairly small on the labial area that appear clean without any necrotic tissue and are approximately measuring 0.4 x 0.8 x 0.1. There appear to be stage 2 ulcerations. LABORATORY DATA: Today show white count of 11.7, hemoglobin of 8.1, hematocrit is 25.6. Blood gas today shows a pH of 7.5, was 7.114 on the 02/17; pCO2 is 30; pO2 is 130. Her sodium is 157, potassium is down to 4.6, chloride is 121, bicarbonate is 9, BUN is 146, creatinine is 9.06, albumin is low at 2.6, total protein is low at 5.5. She did have a urine culture, which grew greater than 100,000 colonies of Klebsiella pneumoniae. DIAGNOSTIC DATA: Chest x-ray shows no active pulmonary disease. Chest CT is unremarkable. Head CT, chronic postsurgical changes are noted. ASSESSMENT AND PLAN: Chronic pressure ulcers of the buttock, coccyx area, labial area of various stages stage II and stage 3. At this point, most of the [place], [place] REPORT OF CONSULTATION NAME: CORINNE METZ UNIT #: [id number] ROOM: 524 DOCTOR: ALVINA Reynoso,NATHANAEL BIRTHDATE: [birth year] wounds have been steadily improving with TheraHoney, I would continue with this for now. It is hard to actually put a foam on the labial area, so what we have been doing in the clinic is just putting the TheraHoney on the open areas and otherwise, leaving it open. For the buttock area, we would continue with the TheraHoney, skin prep around the periwound, and also we continue with TheraHoney on the coccyx area as well. We will encourage offloading as much as possible. She is lying in a prone position today, which is definitely good position to remove pressure from her coccyx area. She has multiple other medical problems that are contributing to poor wound healing, which includes malnutrition, chronic renal failure, severe metabolic derangements, immobility, difficulty offloading. I have asked her in the past and recommended that if we had problems healing the wounds that she may require a custodial facility to help offload and she was adamant about refusing to go anywhere, that was in the clinic when I had spoken with her in the past about it. Also, she is being treated for a urinary tract infection as well in the Intensive Care Unit. Thank you for this consult. NATHANAEL TINSLEY MD CM:CONSTR:REPORT OF CONSULTATION 1718 02/26/17 1039 interface
--- NOTE | ~2017-02-17 | CON ---
[place], [place] REPORT OF CONSULTATION NAME: CORINNE METZ UNIT #: [id number] ROOM: [facility] DOCTOR: EBONI JIMENEZ MD BIRTHDATE: [birth year] DOS: 02/22/2017 PSYCHIATRIC CONSULT CHIEF COMPLAINT: "I am just so depressed." HISTORY OF PRESENT ILLNESS: This is a 46-year-old female with multiple medical comorbidities admitted to ICU for these reasons. In the course of being there, the patient has voiced that she is extremely depressed and has not been eating well, sleeping well, has little to no energy or desire to live. She currently is on Pristiq, but states this has been ineffective at helping her. She offers a plethora of physical complaints most recently. In addition to the poor appetite, she notes an upset stomach with nausea as well. PAST MEDICAL HISTORY: Remarkable for arthritis, chronic back pain, DVT, end-stage renal disease, GERD, history of TIA, hypercoagulable state, spina bifida, subarachnoid hemorrhage. MENTAL STATUS: She is alert and oriented with some time gaps. Mood is overwhelmingly depressed. Affect is flat and blunted with constricted range. There is no hypomania or aleksey. There are no auditory or visual hallucinations. No delusions, no paranoia. Short, intermediate, and long-term memory are intact. DIAGNOSIS: Major depression, recurrent, severe. PLAN: I will discontinue the Pristiq. I will also discontinue p.r.n. Buspar as this requires daily use and is not a very good p.r.n. used episodically. Instead, I will start her on Remeron 15 mg at bedtime. This should dramatically aid sleep and improve appetite. It also has antinausea, vomiting and antispasm effect, so physically it may help her with these symptoms as well. She should follow up in the office post-discharge. EBONI JIMENEZ MD CM:CONSTR:REPORT OF CONSULTATION 0816 02/22/17 2256 interface
--- NOTE | ~2017-02-17 | EKG ---
[place], [place] ELECTROCARDIOGRAM REPORT NAME: CORINNE METZ UNIT #: [id number] ROOM: [facility] DOCTOR: YAIR QUESADA MD BIRTHDATE: [birth year] DOS: 02/17/2017 TIME: 16:29 p.m. Sinus tachycardia with rate 100. Probable left atrial enlargement. Right axis deviation with right bundle-branch block and left posterior fascicular block. Abnormal electrocardiogram. YAIR QUESADA MD CM:EKGRPT:ELECTROCARDIOGRAM REPORT 13 58 YAIR QUESADA MD
--- NOTE | ~2017-02-17 | PR ---
[place], [place] PROGRESS NOTE NAME: CORINNE METZ UNIT #: [id number] ROOM: [facility] DOCTOR: PHI MURO MD BIRTHDATE: [birth year] DOS: 02/18/2017 NEPHROLOGY CONSULTATION REASON FOR CONSULTATION: End-stage renal disease. HISTORY OF PRESENT ILLNESS: The patient is a 46-year-old female. She is well known to our practice. She apparently presented to the hospital with the shortness of breath. She had no other complaints aside from apparent pain. She denied nausea, vomiting, diarrhea, fevers, chills or night sweats. The patient currently has not had any shortness of breath and her only issue is with the pain. She has well known noncompliance with dialysis. In fact, she has only been in the two dialysis sessions over probably a month and a half. Her labs when she presented showed a BUN of 130 and creatinine of 8.6 with a potassium of 5.8 and carbon dioxide of 8. The patient typically reports to the hospital and we called the dialysis nurse and she ultimately refuses her treatments. I had seen her actually in January for a similar situation. She has end-stage renal disease thought to be related to chronic obstructive nephropathy due to her spina bifida. She has been on a Monday and Monday schedule at the [facility] through right upper extremity AV fistula. The patient has chronic pressure ulcers as well. She was admitted to the ICU for further care. She did not appear to be in any acute distress. ALLERGIES: She listed to VANCOMYCIN, TAPE, CODEINE. MEDICATIONS: Reviewed. It does not appear that she is compliant with her home prescribed medications. PAST MEDICAL HISTORY: 1. End-stage renal disease on hemodialysis as stated above with noncompliance. 2. Osteoarthritis. 3. Chronic back pain. 4. History of DVT. 5. Depression. 6. Fatigue. 7. GERD. 8. GI bleed, anemia. 9. TIA. 10. Spina bifida. 11. Hyperlipidemia. 12. Insomnia. 13. Bedbound. 14. Kidney stones. 15. Vitamin D deficiency. 16. Back surgery. 17. Cholecystectomy. 18. Colostomy. 19. Right nephrectomy. 20. Urostomy. 21. Foot surgery. [place], [place] PROGRESS NOTE NAME: CORINNE METZ UNIT #: [id number] ROOM: [facility] DOCTOR: PHI MURO MD BIRTHDATE: [birth year] 22. [employer] shunt. SOCIAL HISTORY: No alcohol or illicit drugs. She does have a history of tobacco abuse. REVIEW OF SYSTEMS: As per HPI, otherwise a 10-point review of systems was reviewed and was negative. FAMILY HISTORY: No family history of chronic kidney disease, otherwise, noncontributory. PHYSICAL EXAMINATION: VITAL SIGNS: Temperature 99.2, pulse 101, respiratory rate 16, blood pressure 138/74. GENERAL: She is awake, alert, appropriate. Did not appear to be in any acute distress. HEENT: Shows no JVD. Sclerae are anicteric. Mucous membranes were dry. Pharynx was clear. NECK: Supple. Trachea is midline. There is lymphadenopathy. There is no thyromegaly. LUNGS: Diminished breath sounds. No appreciable wheeze. She is not using accessory muscles of respiration. HEART: Normal S1, S2. No rub, thrill or gallop. ABDOMEN: Soft, nontender. There is no organomegaly. There is no rigidity. There is no rebound or guarding. EXTREMITIES: Showed trace edema. There is no lower extremity lymphadenopathy. SKIN: Showed no overt rash. There is no petechiae or purpura. Skin temperature is warm. NEUROLOGIC: She is awake, alert. She does answer questions. LABORATORY DATA: Sodium 144, potassium 5.1, BUN 130, creatinine 8.5, bicarb of 8, glucose of 78. Phosphorus 7.1, calcium of 8.6, albumin of 2.6. Hemoglobin 9.1, white count of 8.0, platelets of 154. IMPRESSION: 1. End-stage renal disease with the noncompliance with dialysis. 2. Shortness of breath, likely related to her metabolic acidosis. 3. Severe metabolic acidosis. 4. Hyperphosphatemia. 5. Anemia. 6. Chronic pain. 7. Noncompliance. PLAN: 1. Continue ongoing supportive care. 2. Would consider a palliative care/hospice consult. The patient has had continued refusal and noncompliance with dialysis and I am not sure what much more we can do for her. I am not clear if she is going to be compliant with dialysis even in the hospital. We will tentatively plan for her treatment on Monday. I did not see any urgent need at the present time due to her likely [place], [place] PROGRESS NOTE NAME: CORINNE METZ UNIT #: [id number] ROOM: [facility] DOCTOR: JINA GROVE,PHI Mooney BIRTHDATE: [birth year] compensation for her metabolic abnormalities. Her prognosis is poor with continued noncompliance. Thank you for this consultation. We will follow with you. PHI MURO MD CM:PNTRANS [id number] PHI MURO MD 02/19/17 0846 interface
--- NOTE | ~2017-02-17 | PR ---
[place], [place] PROGRESS NOTE NAME: CORINNE METZ UNIT #: [id number] ROOM: [facility] DOCTOR: PHI MURO MD BIRTHDATE: [birth year] DOS: 02/19/2017 NEPHROLOGY FOLLOWUP NOTE SUBJECTIVE: The patient was seen and examined. She remains in the ICU. She is awake and continues to complain of back pain. She states she has mild shortness of breath, but does not appear to be in any distress. PHYSICAL EXAMINATION: VITAL SIGNS: Temperature is 97.6, pulse 110, respiratory rate 20, blood pressure 91/61. HEENT: Shows no JVD. LUNGS: Diminished breath sounds. No wheeze. HEART: Normal S1, S2. No rub, no thrill or gallop. ABDOMEN: Soft, nontender. There is no organomegaly. EXTREMITIES: With trace edema. LABORATORY DATA: Hemoglobin 8.8, white count of 12.9, platelets 154. Sodium 147, potassium of 5.9, carbon dioxide of 6, BUN of 140, creatinine of 9.1, glucose of 64, calcium 8.9, albumin of 2.7. ASSESSMENT AND PLAN: 1. End-stage renal disease. The patient has been noncompliant with dialysis, which is an ongoing issue. She has been to 2 dialysis sessions as an outpatient it seems over the past month or month and a half or so. We have had numerous discussions with the patient in regards to her situation. I am recommending a palliative care consult as well as psych consult. She apparently now she is agreeable to dialysis, which likely she will require a couple days in a row with slow dialysis. We will attempt to do a short treatment tomorrow with low blood flows as well as on Monday. Potentially, she will need another treatment on Monday and Monday. 2. She has severe metabolic acidosis. We will give several amps of sodium bicarbonate today. This should help with her elevated potassium level as well. 3. Anemia. Transfuse as needed. 4. Leukocytosis. She is on antibiotics. Follow trends. [place], [place] PROGRESS NOTE NAME: CORINNE METZ UNIT #: [id number] ROOM: [facility] DOCTOR: PHI MURO MD BIRTHDATE: [birth year] PHI MURO MD CM:PNTRANS [phone] [id number] PHI MURO MD 02/20/17347 interface
[~2017-02-17 15:37] MED LIST changes: +BUSPAR5 MG PO; +DESVENLAFAXINE50 M4 PO
[2017-02-17 15:42] VITALS: BP 154/85
[2017-02-17 17:06] LABS: ABG CO2 CONTENT 8.9 mmol/L (23-27); ABG HCO3 8.1 mmol/l (22-26); ABG TEMPERATURE 98.4 F (98.0-99.0)
[2017-02-17 17:11] LABS: ARTERIAL BLOOD GAS PH 7.114 (7.35-7.45); ARTERIAL BLOOD GAS PO2 37.5 mmHg (80-90)
[2017-02-17 22:30] LABS: BILIRUBIN NEGATIVE (NEGATIVE); BLOOD TRACE-LYSED (NEGATIVE); CLARITY SL CLOUDY (CLEAR); COLOR YELLOW (YELLOW); GLUCOSE NEGATIVE (NEGATIVE); KETONE NEGATIVE (NEGATIVE); LEUKO ESTERASE NEGATIVE (NEGATIVE); NITRITE NEGATIVE (NEGATIVE); PROTEIN 2+ (NEGATIVE); UROBILINOGEN 0.2 E.U./dl (0.2-1.0)
[2017-02-17 22:39] LABS: BACTERIA 2+; URINE REFLEX COMMENT YES (NO)
[2017-02-17 22:50] VITALS: BP 156/82
[2017-02-18] VITALS (10 sets, daily range): BP systolic 121–162; BP diastolic 73–92
[2017-02-18 01:10] LABS: BASO % 0.5 % (0.0-1.0); EOS # 0.1 10*3/uL (0.0-0.4); EOS % 1.4 % (1.0-4.0); HEMATOCRIT 25.7 % (37.0-47.0); HEMOGLOBIN 8.3 g/dl (12.0-16.0); LYMPH # 1.8 10*3/uL (1.3-4.4); LYMPH % 21.3 % (27.0-41.0); MEAN CORPUSCULAR HGB CONC 32.3 g/dl (33.0-37.0); MEAN PLATELET VOLUME 10.3 fl (9.6-12.3); MONO # 0.5 10*3/uL (0.1-1.0); MONO % 5.5 % (3.0-9.0); NEUT # 6.1 10*3/uL (2.3-7.9); PLATELET COUNT AUTOMATED 150 10*3/uL (130-400); RED BLOOD COUNT 2.96 10*6/uL (4.10-5.10); RED CELL DISTRI WIDTH 19.3 % (0-14.5); WHITE BLOOD COUNT 8.6 10*3/uL (4.8-10.8)
[2017-02-18 01:14] LABS: MEAN CELL VOLUME 86.8 fl (81.0-99.0)
[2017-02-18 01:26] LABS: ALBUMIN 2.5 gm/dl (3.1-4.5); BILIRUBIN, TOTAL 0.4 mg/dl (0.2-1.0); POTASSIUM 4.9 mmol/L (3.5-5.1); TOTAL PROTEIN 5.5 gm/dL (6.4-8.2)
[2017-02-18 01:27] LABS: PHOSPHOROUS 6.5 mg/dL (2.5-4.9)
[2017-02-18 01:32] LABS: THYROID STIM HORMONE (HS) 2.11 uIU/ml (0.358-4.75)
[2017-02-18 02:02] LABS: ESTIMATED AVERAGE GLUCOSE 54; HEMOGLOBIN A1c < 3.5 % (4.8-5.6)
[2017-02-18 02:06] LABS: FOLIC ACID 20.81 ng/mL (>5.38); VITAMIN D, 25-HYDROXY 36.1 ng/mL (30-100)
[2017-02-18 06:35] LABS: BASO % 0.5 % (0.0-1.0); EOS # 0.2 10*3/uL (0.0-0.4); HEMATOCRIT 29.1 % (37.0-47.0); HEMOGLOBIN 9.1 g/dl (12.0-16.0); LYMPH # 1.6 10*3/uL (1.3-4.4); LYMPH % 20.1 % (27.0-41.0); MEAN CELL VOLUME 88.4 fl (81.0-99.0); MEAN CORPUSCULAR HGB 27.7 pg (27.0-31.0); MEAN CORPUSCULAR HGB CONC 31.3 g/dl (33.0-37.0); MEAN PLATELET VOLUME 10.3 fl (9.6-12.3); MONO # 0.3 10*3/uL (0.1-1.0); MONO % 4.3 % (3.0-9.0); NEUT # 5.8 10*3/uL (2.3-7.9); NEUT % 72.8 % (47.0-73.0); PLATELET COUNT AUTOMATED 154 10*3/uL (130-400); RED BLOOD COUNT 3.29 10*6/uL (4.10-5.10); RED CELL DISTRI WIDTH 19.5 % (0-14.5)
[2017-02-18 07:02] LABS: ALBUMIN 2.6 gm/dl (3.1-4.5); BILIRUBIN, TOTAL 0.4 mg/dl (0.2-1.0); MAGNESIUM 2.1 mg/dL (1.5-2.1); PHOSPHOROUS 7.1 mg/dL (2.5-4.9); POTASSIUM 5.1 mmol/L (3.5-5.1); TOTAL PROTEIN 5.9 gm/dL (6.4-8.2)
[2017-02-18 07:07] LABS: THYROID STIM HORMONE (HS) 2.12 uIU/ml (0.358-4.75)
[2017-02-18 07:55] LABS: HEMOGLOBIN A1c 4.7 % (4.8-5.6)
[2017-02-18 08:38] LABS: FOLIC ACID 16.83 ng/mL (>5.38); VITAMIN D, 25-HYDROXY 32.1 ng/mL (30-100)
[2017-02-19] VITALS: BP 100/58
[2017-02-19 04:00] VITALS: BP 109/65
[2017-02-19 05:31] LABS: ALBUMIN 2.7 gm/dl (3.1-4.5); BILIRUBIN, TOTAL 0.4 mg/dl (0.2-1.0); POTASSIUM 5.9 mmol/L (3.5-5.1)
[2017-02-19 06:24] LABS: BASO % 0.3 % (0.0-1.0); HEMATOCRIT 28.9 % (37.0-47.0); HEMOGLOBIN 8.8 g/dl (12.0-16.0); IG # 0.2 10*3/uL (0.0-0.1); LYMPH # 1.1 10*3/uL (1.3-4.4); LYMPH % 8.6 % (27.0-41.0); MEAN CORPUSCULAR HGB 27.9 pg (27.0-31.0); MEAN CORPUSCULAR HGB CONC 30.4 g/dl (33.0-37.0); MEAN PLATELET VOLUME 11.5 fl (9.6-12.3); MONO # 0.5 10*3/uL (0.1-1.0); MONO % 3.6 % (3.0-9.0); NEUT # 11.1 10*3/uL (2.3-7.9); PLATELET COUNT AUTOMATED 154 10*3/uL (130-400); RED BLOOD COUNT 3.15 10*6/uL (4.10-5.10); RED CELL DISTRI WIDTH 19.5 % (0-14.5); WHITE BLOOD COUNT 12.9 10*3/uL (4.8-10.8)
[2017-02-19 06:30] LABS: MEAN CELL VOLUME 91.7 fl (81.0-99.0)
[2017-02-19 08:00] VITALS: BP 105/67
[2017-02-19 12:00] VITALS: BP 91/61
[2017-02-19 16:00] VITALS: BP 110/69
[2017-02-19 20:00] VITALS: BP 112/62
[2017-02-20] VITALS (7 sets, daily range): BP systolic 76–136; BP diastolic 38–64
[2017-02-20 06:09] LABS: BASO % 0.2 % (0.0-1.0); HEMATOCRIT 25.6 % (37.0-47.0); HEMOGLOBIN 8.1 g/dl (12.0-16.0); IG # 0.1 10*3/uL (0.0-0.1); LYMPH # 0.8 10*3/uL (1.3-4.4); LYMPH % 6.4 % (27.0-41.0); MEAN CELL VOLUME 88.9 fl (81.0-99.0); MEAN CORPUSCULAR HGB 28.1 pg (27.0-31.0); MEAN CORPUSCULAR HGB CONC 31.6 g/dl (33.0-37.0); MONO # 0.7 10*3/uL (0.1-1.0); MONO % 6.2 % (3.0-9.0); NEUT # 10.1 10*3/uL (2.3-7.9); NEUT % 86.5 % (47.0-73.0); PLATELET COUNT AUTOMATED 146 10*3/uL (130-400); RED BLOOD COUNT 2.88 10*6/uL (4.10-5.10); RED CELL DISTRI WIDTH 19.5 % (0-14.5); WHITE BLOOD COUNT 11.7 10*3/uL (4.8-10.8)
[2017-02-20 06:26] LABS: ALBUMIN 2.6 gm/dl (3.1-4.5); BILIRUBIN, TOTAL 0.4 mg/dl (0.2-1.0); TOTAL PROTEIN 5.5 gm/dL (6.4-8.2)
[2017-02-20 06:38] LABS: POTASSIUM 4.6 mmol/L (3.5-5.1)
[2017-02-20 10:04] LABS: ABG BASE EXCESS 1.8 mmol/L (-2.0-2.0); ABG CO2 CONTENT 25.2 mmol/L (23-27); ABG HCO3 24.2 mmol/l (22-26); ABG TEMPERATURE 97.8 F (98.0-99.0); ARTERIAL BLOOD GAS PH 7.515 (7.35-7.45)
[2017-02-20 10:55] LABS: PROTHROMBIN TIME 10.8 SECONDS (9.0-12.4)
[2017-02-21] VITALS: BP 105/49
[2017-02-21 04:00] VITALS: BP 124/63
[2017-02-21 05:55] LABS: ALBUMIN 2.2 gm/dl (3.1-4.5); BILIRUBIN, TOTAL 0.4 mg/dl (0.2-1.0); MAGNESIUM 1.4 mg/dL (1.5-2.1); PHOSPHOROUS 4.5 mg/dL (2.5-4.9); TOTAL PROTEIN 5.1 gm/dL (6.4-8.2)
[2017-02-21 06:17] LABS: BASO % 0.1 % (0.0-1.0); EOS % 0.3 % (1.0-4.0); HEMATOCRIT 22.3 % (37.0-47.0); HEMOGLOBIN 7.2 g/dl (12.0-16.0); LYMPH # 1.2 10*3/uL (1.3-4.4); LYMPH % 13.9 % (27.0-41.0); MEAN CORPUSCULAR HGB 27.4 pg (27.0-31.0); MEAN CORPUSCULAR HGB CONC 32.3 g/dl (33.0-37.0); MEAN PLATELET VOLUME 12.2 fl (9.6-12.3); MONO # 0.7 10*3/uL (0.1-1.0); MONO % 8.3 % (3.0-9.0); NEUT # 6.9 10*3/uL (2.3-7.9); NEUT % 77.2 % (47.0-73.0); PLATELET COUNT AUTOMATED 149 10*3/uL (130-400); RED BLOOD COUNT 2.63 10*6/uL (4.10-5.10); RED CELL DISTRI WIDTH 19.8 % (0-14.5)
[2017-02-21 06:31] LABS: POTASSIUM 3.6 mmol/L (3.5-5.1)
[2017-02-21 06:34] LABS: MEAN CELL VOLUME 84.8 fl (81.0-99.0)
[2017-02-21 08:00] VITALS: BP 126/59
[2017-02-21 12:00] VITALS: BP 133/75
[2017-02-21 16:00] VITALS: BP 113/67
[2017-02-21 20:00] VITALS: BP 138/81
[2017-02-22] VITALS: BP 150/87
[2017-02-22 04:00] VITALS: BP 126/78
[2017-02-22 05:41] LABS: ALBUMIN 2.2 gm/dl (3.1-4.5); PHOSPHOROUS 6.2 mg/dL (2.5-4.9)
[2017-02-22 06:12] LABS: BASO % 0.1 % (0.0-1.0); EOS # 0.1 10*3/uL (0.0-0.4); HEMATOCRIT 21.1 % (37.0-47.0); HEMOGLOBIN 6.7 g/dl (12.0-16.0); LYMPH # 1.4 10*3/uL (1.3-4.4); MEAN CELL VOLUME 86.5 fl (81.0-99.0); MEAN CORPUSCULAR HGB 27.5 pg (27.0-31.0); MEAN CORPUSCULAR HGB CONC 31.8 g/dl (33.0-37.0); MONO # 0.7 10*3/uL (0.1-1.0); NEUT # 5.7 10*3/uL (2.3-7.9); NEUT % 71.8 % (47.0-73.0); PLATELET COUNT AUTOMATED 130 10*3/uL (130-400); RED BLOOD COUNT 2.44 10*6/uL (4.10-5.10); RED CELL DISTRI WIDTH 19.7 % (0-14.5); WHITE BLOOD COUNT 7.9 10*3/uL (4.8-10.8)
[2017-02-22 08:00] VITALS: BP 165/96; BP 176/110
[2017-02-22 12:00] VITALS: BP 97/63
[2017-02-22 16:00] VITALS: BP 144/80
[2017-02-22 20:00] VITALS: BP 121/81
[2017-02-23] VITALS (7 sets, daily range): BP systolic 119–158; BP diastolic 62–94
[2017-02-23 05:39] LABS: ALBUMIN 2.2 gm/dl (3.1-4.5); MAGNESIUM 1.8 mg/dL (1.5-2.1); POTASSIUM 3.7 mmol/L (3.5-5.1)
[2017-02-23 05:40] LABS: PHOSPHOROUS 3.5 mg/dL (2.5-4.9)
[2017-02-23 06:03] LABS: BASO % 0.3 % (0.0-1.0); EOS # 0.1 10*3/uL (0.0-0.4); EOS % 0.5 % (1.0-4.0); LYMPH % 19.9 % (27.0-41.0); MEAN CELL VOLUME 87.9 fl (81.0-99.0); MEAN CORPUSCULAR HGB 29.1 pg (27.0-31.0); MEAN CORPUSCULAR HGB CONC 33.1 g/dl (33.0-37.0); MEAN PLATELET VOLUME 11.2 fl (9.6-12.3); MONO # 0.9 10*3/uL (0.1-1.0); MONO % 9.5 % (3.0-9.0); NEUT # 6.9 10*3/uL (2.3-7.9); NEUT % 69.5 % (47.0-73.0); NUCLEATED RED BLOOD CELL 0.2 % (0.0-0.0); PLATELET COUNT AUTOMATED 131 10*3/uL (130-400); RED CELL DISTRI WIDTH 17.9 % (0-14.5); WHITE BLOOD COUNT 9.9 10*3/uL (4.8-10.8)
[2017-02-23 06:13] LABS: HEMOGLOBIN 9.6 g/dl (12.0-16.0)
[2017-02-24 00:44] VITALS: BP 116/64
[2017-02-24 06:42] LABS: BASO % 0.5 % (0.0-1.0); EOS # 0.3 10*3/uL (0.0-0.4); EOS % 3.3 % (1.0-4.0); HEMOGLOBIN 9.9 g/dl (12.0-16.0); IG # 0.1 10*3/uL (0.0-0.1); LYMPH # 1.7 10*3/uL (1.3-4.4); LYMPH % 19.1 % (27.0-41.0); MEAN CELL VOLUME 88.8 fl (81.0-99.0); MEAN CORPUSCULAR HGB 29.3 pg (27.0-31.0); MEAN PLATELET VOLUME 11.4 fl (9.6-12.3); MONO # 0.9 10*3/uL (0.1-1.0); MONO % 9.8 % (3.0-9.0); NEUT # 5.9 10*3/uL (2.3-7.9); NEUT % 66.4 % (47.0-73.0); NUCLEATED RED BLOOD CELL 0.3 % (0.0-0.0); PLATELET COUNT AUTOMATED 128 10*3/uL (130-400); RED BLOOD COUNT 3.38 10*6/uL (4.10-5.10); RED CELL DISTRI WIDTH 18.1 % (0-14.5); WHITE BLOOD COUNT 8.8 10*3/uL (4.8-10.8)
[2017-02-24 07:10] LABS: ALBUMIN 2.2 gm/dl (3.1-4.5); PHOSPHOROUS 2.2 mg/dL (2.5-4.9); POTASSIUM 3.2 mmol/L (3.5-5.1)
[2017-02-24 08:04] VITALS: BP 110/64
[2017-02-24 12:00] VITALS: BP 136/76
[2017-02-24 16:00] VITALS: BP 131/82
[2017-02-24 20:00] VITALS: BP 136/84
[2017-02-25 00:23] VITALS: BP 132/76
[2017-02-25 07:32] LABS: BASO % 0.3 % (0.0-1.0); EOS # 0.6 10*3/uL (0.0-0.4); EOS % 6.7 % (1.0-4.0); HEMATOCRIT 31.9 % (37.0-47.0); HEMOGLOBIN 10.2 g/dl (12.0-16.0); LYMPH # 0.9 10*3/uL (1.3-4.4); LYMPH % 9.6 % (27.0-41.0); MEAN CELL VOLUME 90.9 fl (81.0-99.0); MEAN CORPUSCULAR HGB 29.1 pg (27.0-31.0); MEAN PLATELET VOLUME 11.4 fl (9.6-12.3); MONO # 0.9 10*3/uL (0.1-1.0); MONO % 9.6 % (3.0-9.0); NEUT % 73.4 % (47.0-73.0); NUCLEATED RED BLOOD CELL 0.3 % (0.0-0.0); PLATELET COUNT AUTOMATED 123 10*3/uL (130-400); RED BLOOD COUNT 3.51 10*6/uL (4.10-5.10); RED CELL DISTRI WIDTH 18.1 % (0-14.5); WHITE BLOOD COUNT 9.5 10*3/uL (4.8-10.8)
[2017-02-25 07:54] LABS: ALBUMIN 2.1 gm/dl (3.1-4.5); PHOSPHOROUS 1.1 mg/dL (2.5-4.9)
[2017-02-25 08:05] LABS: POTASSIUM 4.2 mmol/L (3.5-5.1)
[2017-02-25 12:07] VITALS: BP 132/82
[2017-02-25 16:00] VITALS: BP 136/73
[2017-02-25 20:00] VITALS: BP 100/66
[2017-02-26] VITALS: BP 98/61
[2017-02-26 04:00] VITALS: BP 99/65
[2017-02-26 08:00] VITALS: BP 120/82
[2017-02-26 12:00] VITALS: BP 104/71
[2017-02-26 16:00] VITALS: BP 104/71; BP 107/66
== END 2017-02-26 17:11 | disposition left against medical advice (07) | DRG 871 ==
LOC: ED 15:37 → 5E 22:19 → EDHOLD 22:19 → ICCU 22:19 → 5E 02-23 12:28
PROVIDERS: Emergency Medicine; Hospitalist; Internal Medicine; Internal Medicine Hospice and Palliative Medicine; Internal Medicine Nephrology
PROC: 5A1D60Z (ICD-10-PCS; principal; 2017-02-20)
PROC: 30233N1 Transfusion of Nonautologous Red Blood Cells into Peripheral Vein, Percutaneous Approach (ICD-10-PCS; 2017-02-22)
DX: A41.9 Sepsis, unspecified organism (principal); N18.6 End stage renal disease; G93.41 Metabolic encephalopathy; L89.153 Pressure ulcer of sacral region, stage 3; F33.2 Major depressive disorder, recurrent severe without psychotic features; L89.302 Pressure ulcer of unspecified buttock, stage 2; D68.59 Other primary thrombophilia; E87.0 Hyperosmolality and hypernatremia; N39.0 Urinary tract infection, site not specified; G44.209 Tension-type headache, unspecified, not intractable; R65.20 Severe sepsis without septic shock; K21.9 Gastro-esophageal reflux disease without esophagitis; F17.210 Nicotine dependence, cigarettes, uncomplicated; F41.9 Anxiety disorder, unspecified; Z53.21 Procedure and treatment not carried out due to patient leaving prior to being seen by health care provider; M19.90 Unspecified osteoarthritis, unspecified site; M54.5 Low back pain; Z51.5 Encounter for palliative care; D63.1 Anemia in chronic kidney disease; B96.1 Klebsiella pneumoniae [K. pneumoniae] as the cause of diseases classified elsewhere; Z16.29 Resistance to other single specified antibiotic; Z86.718 Personal history of other venous thrombosis and embolism; Z86.73 Personal history of transient ischemic attack (TIA), and cerebral infarction without residual deficits; Z90.49 Acquired absence of other specified parts of digestive tract; Z93.3 Colostomy status; Z90.5 Acquired absence of kidney; Z82.5 Family history of asthma and other chronic lower respiratory diseases; Z71.6 Tobacco abuse counseling; Z82.49 Family history of ischemic heart disease and other diseases of the circulatory system; Z82.0 Family history of epilepsy and other diseases of the nervous system; Z84.89 Family history of other specified conditions; Z88.1 Allergy status to other antibiotic agents; Z88.6 Allergy status to analgesic agent; Z88.8 Allergy status to other drugs, medicaments and biological substances; Z91.048 Other nonmedicinal substance allergy status; Z79.82 Long term (current) use of aspirin; Z79.899 Other long term (current) drug therapy; Z99.2 Dependence on renal dialysis; Z91.15 Patient's noncompliance with renal dialysis

== ENCOUNTER → 2017-03-15 | Outpatient (CLI) | payer MEDICARE ==
--- NOTE | ~2017-03-15 | PR ---
[place], [place] PROGRESS NOTE [id number] UNIT #: [id number] ROOM: DOCTOR: ALVINA ReynosoNATHANAEL BIRTHDATE: [birth year] DOS: 03/15/2017 SUBJECTIVE: Multiple pressure ulcers of the buttock area, sacral area, coccyx area, labial area. HISTORY OF PRESENT ILLNESS: This is a 46-year-old female with multiple medical problems that include spina bifida and chronic renal failure, on hemodialysis. She has been coming to the Wound Clinic for 10 weeks now for pressure ulcers of the buttock area as well as labial area. At the time, she was coming here fairly steadily; the wounds continued to improve. They initially started when she was in the hospital, I believe [facility], for a medical illness. However, during her recent course here in the Wound Clinic, she had been missing several hemodialysis appointments and was admitted last February for metabolic encephalopathy, severe metabolic derangement. She had been in the ICU for an extended period of time, prolonged hospital stay. She was going to be discharged to a alf facility for further care; however, she left against medical advice. She is at home, she lives by herself and she has some aides that come in to help her, but they are not nurses; they come in to help her; however, they are doing her dressings for her. She cannot get home health since she left AMA. She has not been able to get a cushion approved for her through her insurance nor an offloading mattress and home health cannot come in to help her with her dressings. She is pretty much in a seated position for 12 hours during the daytime in her wheelchair. She once again has not been able to get a cushion. She offers no specific complaints today. She is using TheraHoney and a foam for her wounds. PHYSICAL EXAMINATION: VITAL SIGNS: Her temperature is 98.7, pulse is 74, respirations 18, blood pressure was not recorded at this time. WOUND EVALUATION: She has a wound #13, which is on the right labial area, is measuring slightly bigger at 1 x 0.3 x 0.1. Wound #14 is a large wound of the coccyx area that was just starting off the last time I saw her when she was in the hospital, but is noticeably bigger from the last time that I have seen her; I would classify this at least a stage 3. There is moderate amount of fibrin slough. It is fairly large at 3.2 x 1.6 x 0.1. There is no periwound cellulitis or purulence. The left sacral wound is new, is measuring 0.2 x 0.7 x 0.1 and wound #9 is definitely looking smaller as well and that is also on the left gluteal area, it is 1.2 x 0.7 x 0.1. The other labial wounds appear to all have healed. So a debridement was done of the coccyx wound. This is the newer wound that was a selective debridement only. The tissue removed was fibrin and slough. There was minimal to moderate amount of bleeding that was controlled with pressure. Post-debridement measurements are unchanged except for the depth of 0.2. Her last labs were done in February and show a white count of 9.5, hemoglobin of 10 and platelets of 123,000. Her BUN was 19, creatinine was 3, glucose was 94. Albumin was low at 2.1. ASSESSMENT AND PLAN: Multiple pressure ulcers, stage 2 and stage 3. The largest one right now that I am concerned of is the coccyx wound, it has gotten [place], [place] PROGRESS NOTE NAME: ISAÍASCORINNE A UNIT #: [id number] ROOM: DOCTOR: NATHANAEL TINSLEY M.D. BIRTHDATE: [birth year] much bigger from the last time that I have seen it. We debrided it today. Since there was so much slough present, I would prefer to try Santyl, so a script for Santyl was made. However, the issue is who is going to be helping her with her dressing changes. Home health will not come to the house as she left against medical advice and she does not have any family members who can come to help her. Even her aides are going to be discharging her shortly. She does not have any adequate offloading devices either. We will check with our case therapist of the hospital to see if there is any perhaps assistance from like office of aging whether there can be something that could be given to her. I am quite concerned that she will need more assistance than what can be provided at this time, just by herself. She is going to follow up in the Wound Clinic in 1 week and I also did recommend for her to be seen by Gynecology too to also help evaluate the labial ulcers as well. Follow up in Wound Clinic in 1 week. NATHANAEL TINSLEY MD CM:AMADEO [id number] NATHANAEL TINSLEY M.D. 03/16/17 0241 interface
== END ==
LOC: WOUNDCARE 02:30
DX: L89.322 Pressure ulcer of left buttock, stage 2 (principal); L89.153 Pressure ulcer of sacral region, stage 3; L89.899 Pressure ulcer of other site, unspecified stage; Q05.9 Spina bifida, unspecified; N18.9 Chronic kidney disease, unspecified; Z99.2 Dependence on renal dialysis

== ENCOUNTER → 2017-03-22 | Outpatient (CLI) | payer MEDICARE ==
--- NOTE | ~2017-03-22 | PR ---
[place], [place] PROGRESS NOTE [id number] UN[facility] #: [id number] ROOM: DOCTOR: ALVINA ReynosoNATHANAEL BIRTHDATE: [birth year] DOS: 03/22/2017 CHIEF COMPLAINT: Followup of multiple pressure ulcers. HISTORY OF PRESENT ILLNESS: This is a 46-year-old female with spina bifida, chronic renal failure, on hemodialysis, markedly debilitated with multiple pressure ulcers of the buttock area and labial area. She has been coming to the [facility] for 11 weeks now. The wounds had been steadily improving until a recent hospital stay, when one of the coccyx-buttock wounds became quite a bit larger. Last week, we had told her to switch to Santyl. Her comorbid conditions are that one; she is really unable to do her dressing changes herself. She does not have home health, does not qualify for home health, and her insurance refused to pay for a cushion for her wheelchair or an offloading mattress due to her leaving the hospital against medical advice. She says that she will try to get whoever can help her neighbors, friends to come and help her with the dressings, but it does not sound to be consistently done. She pretty much stays in one position in her wheelchair all day long. We did prescribe Santyl last week instead of the TheraHoney; however, she does not know if she has been using it. She is not quite sure what has been being used on her wounds. She has no specific complaints. I did ask her to follow up with her analyst microbiology lab as well as she had multiple labial wounds that appeared to be pressure ulcer related and seemed to be healing, but I did want her to go ahead and be seen by gynecology as well for these ulcerations, but she did not follow up with gynecology. PHYSICAL EXAMINATION: Temperature is 99, pulse of 68, respirations 18, blood pressure is 104/60. Wound #14, which is located on the right sacral area, buttock area is slightly smaller at 3 x 1.5 x 0.1. There is moderate amount of fibrin slough present. There is no periwound erythema or inflammation. The wound on the left sacral area is smaller at 0.1 x 0.5 x 0.1 and there is no visible necrotic tissue. Wound #9, is definitely smaller as well and that is measuring 0.4 x 0.4 x 0.11 and that is on the left gluteus area and that seems improving, although labial wounds appear to have healed. Debridement was done of wound #14 with tissue removed with fibrin and slough and biofilm. This was a selective debridement only. A curette was utilized, there was moderate amount of bleeding. Post-debridement measurements are as follows: 3 x 1.4 x 0.2 in depth and this is at least a stage III ulcer. ASSESSMENT AND PLAN: Multiple pressure ulcers of the sacral buttock area, which are improving for the most part. She still has a fairly large wound on the midline right area that still needs debridement due to the presence of necrotic tissue. So we did recommend Santyl; however, I am not sure if she has gotten it. She said she might be willing to purchase an offloading care cushion if she can afford it. So I did recommend for her to go to a medical supply store and see what is available that she can afford, since her insurance will not cover anything for her. In the meantime, we will continue with the Santyl and have her follow up in 1 week. All the wounds appear to have healed quite nicely. [place], [place] PROGRESS NOTE NAME: CORINNE METZ UNIT #: [id number] ROOM: DOCTOR: NATHANAEL TINSLEY M.D. BIRTHDATE: [birth year] NATHANAEL TINSLEY MD CM:AMADEO [id number] NATHANAEL TINSLEY M.D. 03/23/17 1007 interface
== END ==
LOC: WOUNDCARE 02:56
DX: L89.322 Pressure ulcer of left buttock, stage 2 (principal); L89.153 Pressure ulcer of sacral region, stage 3; Q05.9 Spina bifida, unspecified; N18.9 Chronic kidney disease, unspecified; Z99.2 Dependence on renal dialysis

== ENCOUNTER 2017-03-28 20:22 | Emergency (ER) | payer MEDICARE ==
[~2017-03-28] VITALS: Ht 134.6 cm; Wt 29.9 kg
[2017-03-28 20:26] VITALS: BP 167/99
[2017-03-28] MEDS ORDERED: KENALOG 0.1%80 GM T (22:07)
== END 2017-03-28 20:55 | disposition home or self-care (01) ==
LOC: ED 20:22
DX: K94.09 Other complications of colostomy (principal); M19.90 Unspecified osteoarthritis, unspecified site; G89.29 Other chronic pain; K21.9 Gastro-esophageal reflux disease without esophagitis; I12.0 Hypertensive chronic kidney disease with stage 5 chronic kidney disease or end stage renal disease; N18.6 End stage renal disease; Z86.73 Personal history of transient ischemic attack (TIA), and cerebral infarction without residual deficits; Z99.2 Dependence on renal dialysis; Z98.890 Other specified postprocedural states; Z90.49 Acquired absence of other specified parts of digestive tract; Z79.899 Other long term (current) drug therapy; Z79.82 Long term (current) use of aspirin; Z88.1 Allergy status to other antibiotic agents; Z88.5 Allergy status to narcotic agent; Z88.8 Allergy status to other drugs, medicaments and biological substances

== ENCOUNTER 2017-03-31 17:03 | Emergency (ER) | payer MEDICARE ==
[~2017-03-31] VITALS: Ht 134.6 cm; Wt 29.9 kg
[~2017-03-31 17:03] MED LIST changes: +KENALOG 0.1%80 GM T
[2017-03-31 18:46] VITALS: BP 142/84
[2017-03-31] MEDS ORDERED: LIDEX 0.05% CRE15 GM T (18:46)
== END 2017-03-31 19:23 | disposition home or self-care (01) ==
LOC: ED 17:03
DX: R60.0 Localized edema (principal); L89.309 Pressure ulcer of unspecified buttock, unspecified stage; R21 Rash and other nonspecific skin eruption; G89.29 Other chronic pain; M54.9 Dorsalgia, unspecified; F17.200 Nicotine dependence, unspecified, uncomplicated; M19.90 Unspecified osteoarthritis, unspecified site; I12.0 Hypertensive chronic kidney disease with stage 5 chronic kidney disease or end stage renal disease; N18.6 End stage renal disease; K21.9 Gastro-esophageal reflux disease without esophagitis; Z86.73 Personal history of transient ischemic attack (TIA), and cerebral infarction without residual deficits; Z86.718 Personal history of other venous thrombosis and embolism; Z88.1 Allergy status to other antibiotic agents; Z88.6 Allergy status to analgesic agent; Z88.8 Allergy status to other drugs, medicaments and biological substances; Z79.899 Other long term (current) drug therapy; Z99.2 Dependence on renal dialysis

== ENCOUNTER → 2017-04-04 | Outpatient (CLI) | payer MEDICARE ==
[~2017-04-04] MED LIST changes: +LIDEX 0.05% CRE15 GM T
== END ==
LOC: WOUNDCARE 01:20
DX: L89.153 Pressure ulcer of sacral region, stage 3 (principal); Q05.9 Spina bifida, unspecified; N18.9 Chronic kidney disease, unspecified

== ENCOUNTER → 2017-04-13 | Outpatient (CLI) | payer MEDICARE | LOC: WOUNDCARE 00:28 | DX: L89.153 Pressure ulcer of sacral region, stage 3 (principal); Q05.9 Spina bifida, unspecified; N18.9 Chronic kidney disease, unspecified; Z99.2 Dependence on renal dialysis ==

== ENCOUNTER → 2017-04-20 | Outpatient (CLI) | payer MEDICARE | LOC: WOUNDCARE 02:33 | DX: L89.153 Pressure ulcer of sacral region, stage 3 (principal); Q05.9 Spina bifida, unspecified; Z99.2 Dependence on renal dialysis ==

== ENCOUNTER → 2017-05-10 | Outpatient (CLI) | payer MEDICARE ==
--- NOTE | ~2017-05-10 | PR ---
[place], [place] PROGRESS NOTE NAME: CORINNE METZ [facility] #: [id number] UNIT #: [id number] ROOM: DOCTOR: NATHANAEL TINSLEY M.D. BIRTHDATE: [birth year] DOS: 05/10/2017 WOUND CARE PROGRESS NOTE CHIEF COMPLAINT: Follow up pressure ulcers of the sacrum and coccyx area. SUBJECTIVE: A 46-year-old female with spina bifida, chronic renal failure, on hemodialysis, very limited mobility, lives alone and is in a wheelchair for most of the day by herself. She has been coming to the Wound Clinic for 15 weeks now with multiple pressure ulcers, most of which have healed. We have been dealing with one fairly large wound on the sacrum that has been healing well. She thinks it is looking good. She has no specific complaints. She is on a foam dressing. OBJECTIVE: VITAL SIGNS: Stable. Temperature 99.7, pulse 66, respirations 16, blood pressure 140/70. The wound is healed and is not open and has improved greatly. There is no sign of infection. ASSESSMENT AND PLAN: Healed pressure ulcer of the sacral buttock area. I would recommend to keep the area protected with the foam dressing, not to use any topicals, for now to go ahead with that and keep it protected for at least the next two weeks. She should try to stay off it as much as possible and we will discharge the patient. She is to come back if she has any future ulcers. NATHANAEL TINSLEY MD CM:PNTRANS [id number] NATHANAEL TINSLEY M.D. 05/10/17 1356 interface
== END ==
LOC: WOUNDCARE 04:16
DX: L89.153 Pressure ulcer of sacral region, stage 3 (principal); N18.9 Chronic kidney disease, unspecified; Q05.9 Spina bifida, unspecified; Z99.2 Dependence on renal dialysis

== ENCOUNTER → 2017-08-11 | Outpatient (CLI) | payer MEDICARE ==
[2017-08-11 11:55] LABS: BASO % 0.5 % (0.0-1.0); EOS # 0.2 10*3/uL (0.0-0.4); EOS % 1.9 % (1.0-4.0); HEMATOCRIT 35.2 % (37.0-47.0); LYMPH # 0.5 10*3/uL (1.3-4.4); LYMPH % 5.5 % (27.0-41.0); MEAN CELL VOLUME 94.6 fl (81.0-99.0); MEAN CORPUSCULAR HGB 29.6 pg (27.0-31.0); MEAN CORPUSCULAR HGB CONC 31.3 g/dl (33.0-37.0); MEAN PLATELET VOLUME 9.9 fl (9.6-12.3); MONO # 0.5 10*3/uL (0.1-1.0); MONO % 5.3 % (3.0-9.0); NEUT # 7.6 10*3/uL (2.3-7.9); NEUT % 86.5 % (47.0-73.0); PLATELET COUNT AUTOMATED 211 10*3/uL (130-400); RED BLOOD COUNT 3.72 10*6/uL (4.10-5.10); RED CELL DISTRI WIDTH 15.9 % (0-14.5); WHITE BLOOD COUNT 8.8 10*3/uL (4.8-10.8)
[2017-08-11 12:22] LABS: CREATININE 3.14 mg/dL (0.55-1.02); POTASSIUM 3.9 mmol/L (3.5-5.1); TOTAL PROTEIN 5.3 gm/dL (6.4-8.2)
== END | disposition home or self-care (01) ==
LOC: LAB 11:05
PROVIDERS: Family Medicine
DX: M79.641 Pain in right hand (principal); M79.642 Pain in left hand; E55.9 Vitamin D deficiency, unspecified; Z79.899 Other long term (current) drug therapy

== ENCOUNTER 2017-09-18 09:11 | Inpatient (IN) | payer MEDICARE ==
[~2017-09-18] VITALS: Ht 134.6 cm; Wt 36.8 kg
[2017-09-18 09:19] VITALS: BP 132/89
[2017-09-18 09:48] LABS: BASO % 0.3 % (0.0-1.0); EOS # 0.1 10*3/uL (0.0-0.4); HEMATOCRIT 32.4 % (37.0-47.0); HEMOGLOBIN 10.7 g/dl (12.0-16.0); LYMPH # 0.4 10*3/uL (1.3-4.4); LYMPH % 3.3 % (27.0-41.0); MEAN CELL VOLUME 89.5 fl (81.0-99.0); MEAN CORPUSCULAR HGB 29.6 pg (27.0-31.0); MEAN PLATELET VOLUME 9.8 fl (9.6-12.3); MONO # 1.1 10*3/uL (0.1-1.0); MONO % 8.6 % (3.0-9.0); NEUT # 11.3 10*3/uL (2.3-7.9); NEUT % 86.4 % (47.0-73.0); PLATELET COUNT AUTOMATED 178 10*3/uL (130-400); RED BLOOD COUNT 3.62 10*6/uL (4.10-5.10); RED CELL DISTRI WIDTH 15.4 % (0-14.5); WHITE BLOOD COUNT 13.1 10*3/uL (4.8-10.8)
[2017-09-18 09:57] LABS: ACT PARTIAL THROMBO TIME 28.5 SECONDS (20.8-31.5)
[2017-09-18 10:05] LABS: ALBUMIN 1.9 gm/dl (3.1-4.5); ALKALINE PHOSPHATASE 140 U/L (45-117); BUN 58 mg/dl (7-24); CHLORIDE 99 mmol/L (98-107); CREATININE 4.74 mg/dL (0.55-1.02); POTASSIUM 3.9 mmol/L (3.5-5.1); SGOT/AST 26 IU/L (3-35); SGPT/ALT 28 U/L (12-78); SODIUM 136 mmol/L (136-145); TOTAL PROTEIN 5.3 gm/dL (6.4-8.2)
[2017-09-18 10:08] LABS: TROPONIN I < 0.015 ng/ml (<0.045)
[2017-09-18 10:16] VITALS: BP 125/76
[2017-09-18 10:58] VITALS: BP 119/78
[2017-09-18 11:04] LABS: BILIRUBIN NEGATIVE (NEGATIVE); BLOOD TRACE-INTACT (NEGATIVE); CLARITY CLOUDY (CLEAR); COLOR YELLOW (YELLOW); GLUCOSE NEGATIVE (NEGATIVE); KETONE NEGATIVE (NEGATIVE); LEUKO ESTERASE 1+ (NEGATIVE); NITRITE NEGATIVE (NEGATIVE); PH >= 9.0 (5.0-9.0); UROBILINOGEN 0.2 E.U./dl (0.2-1.0)
[2017-09-18 11:16] LABS: BACTERIA 1+
[2017-09-18 11:17] LABS: TRIP PHOS CRYSTALS 1+
[2017-09-18 11:45] VITALS: BP 120/74
[2017-09-18] MEDS ORDERED: VITAMIN D-32000 UNI1 PO (13:03)
[2017-09-18] MEDS ORDERED: VOL-CARE RX TA1 EACH PO (13:05)
[2017-09-18] MEDS ORDERED: ULTRAM50 MG PO (13:07)
[2017-09-18] MEDS ORDERED: SODIUM BICARBO325 M1 PO (13:15)
[2017-09-18] MEDS ORDERED: ONDANSETRON HYDR4 M1 PO (13:16)
--- NOTE | 2017-09-18 13:20 | NUR ---
DR. SCHMIDT OFFICE NOTIFIED OF CONSULT.
--- NOTE | 2017-09-18 14:02 | NUR ---
PER DR. SHAH PATIENT WILL HAVE DIALYSIS ON MONDAY.
[2017-09-18 16:00] VITALS: BP 126/76
[2017-09-18 20:00] VITALS: BP 97/56
--- NOTE | 2017-09-18 22:46 | NUR ---
PT MEDICATED PREVIOUSLY FOR PAIN R/T PNEUMONIA PER PT. STATES BACK AND IN TO CHEST. MEDICATED PER REQUEST WITH ULTRAM PT STATES MINOR RELIEF. OFFERED BREATHING TREATMENT AND AFTER TREATMENT PT STATES FEELING A LITTLE BETTER. NO SIGNS OF DISTRESS. PT CONTINUES TO REST COMFORTABLY
[2017-09-19] VITALS: BP 127/71
--- NOTE | 2017-09-19 | NUR ---
ASSUMED CARE OF PATIENT. ASSESSMENT COMPLETE. RESTING IN BED. NO VOICED COMPLAINTS. CALL LIGHT IN REACH. WILL CONTINUE TO MONITOR.
--- NOTE | 2017-09-19 01:45 | NUR ---
MEDICATED WITH PRN ULTRAM FOR C/O CHEST PAIN. RATES 05/18
--- NOTE | 2017-09-19 02:30 | NUR ---
PT SLEEPING, EARLIER ULTRAM APPEARS TO BE EFFECTIVE
[2017-09-19 06:19] LABS: BASO % 0.2 % (0.0-1.0); EOS # 0.1 10*3/uL (0.0-0.4); EOS % 0.9 % (1.0-4.0); HEMATOCRIT 27.1 % (37.0-47.0); HEMOGLOBIN 9.1 g/dl (12.0-16.0); LYMPH # 0.4 10*3/uL (1.3-4.4); LYMPH % 3.5 % (27.0-41.0); MEAN CELL VOLUME 89.4 fl (81.0-99.0); MEAN CORPUSCULAR HGB CONC 33.6 g/dl (33.0-37.0); MEAN PLATELET VOLUME 10.4 fl (9.6-12.3); MONO # 1.2 10*3/uL (0.1-1.0); MONO % 11.6 % (3.0-9.0); NEUT # 8.5 10*3/uL (2.3-7.9); NEUT % 83.2 % (47.0-73.0); PLATELET COUNT AUTOMATED 143 10*3/uL (130-400); RED BLOOD COUNT 3.03 10*6/uL (4.10-5.10); RED CELL DISTRI WIDTH 15.4 % (0-14.5); WHITE BLOOD COUNT 10.2 10*3/uL (4.8-10.8)
[2017-09-19 06:53] LABS: ALBUMIN 1.5 gm/dl (3.1-4.5); CREATININE 4.75 mg/dL (0.55-1.02); PHOSPHOROUS 6.5 mg/dL (2.5-4.9); POTASSIUM 4.1 mmol/L (3.5-5.1); TOTAL PROTEIN 4.5 gm/dL (6.4-8.2)
[2017-09-19 07:00] LABS: FREE T4 1.14 ng/dl (0.76-1.46); THYROID STIM HORMONE (HS) 2.12 uIU/ml (0.358-4.75)
[2017-09-19 07:52] LABS: VITAMIN D, 25-HYDROXY 45.2 ng/mL (30-100)
[2017-09-19 08:08] VITALS: BP 126/80
--- NOTE | 2017-09-19 08:29 | NUR ---
ASSESSMENT COMPLETED AND DOCUMENTED, PT HAS NO COMPLAINTS AT THIS TIME. [facility]
--- NOTE | 2017-09-19 10:02 | NUR ---
MEDICATED WITH ULTRAM ORDERED FOR C/O PAIN DOCUMENTED.
--- NOTE | 2017-09-19 10:40 | NUR ---
Noodle Catalyst Maker in to talk to patient. Patient states lives at home with alone. There are no steps in the home. Physician: monica mcclellan [facility] Home health services: [facility] Patient's level of ADLs: BEDFAST Patient has working utilities: all working DME: wheelchair Follow-up physician's appointment after d/c: will be made by hospitalist nurse director upon discharge Does patient want to access PORTAL?: no Discharge plan discussed with patient, home health aid also present, patient lives at home alone, she has [facility] services with aids from [facility] 7 days a week, she has dialysis monday and monday, but states she doesn't always go, patient stated she was going back home when able and will have her home health continue.. ALYCIA CULVER
--- NOTE | 2017-09-19 10:45 | NUR ---
UROSTOMY APPLIANCE CHANGED PER HOME HEALTH NURSE VISITING PER PT REQUEST. PT TOLERATED WELL. SITE ASYMPTOMATIC. SKIN INTACT SURROUNDING STOMA. BATHED AND BED CHANGED WITHOUT COMPLAINT OR DIFFICULTY.
--- NOTE | 2017-09-19 11:00 | NUR ---
VERBALIZES A DECREASE IN PAIN DOCUMENTED.
--- NOTE | 2017-09-19 12:15 | NUR ---
NOTED DIFFICULTY FLUSHING IV. LEAKING AT SITE. DC'D AT THIS TIME. CATH INTACT. SITE ASYMPTOMATIC. PT TOLERATED WELL.
[2017-09-19 12:58] VITALS: BP 130/80
--- NOTE | 2017-09-19 13:15 | NUR ---
IV INSERTED INTO LEFT HAND WITHOUT DIFFICULTY TIMES ONE ATTEMPT. GOOD BLOOD RETURN AND FLUSHES WITH EASE. PT TOLERATED WELL.
--- NOTE | 2017-09-19 13:45 | NUR ---
PATIENT IS AWAKE SITTING UP IN BED WATCHING TV, NO COMPLAINTS AT THIS TIME. GAVE VERBAL REPORT TO KYLAH [facility]MA [facility]
--- NOTE | 2017-09-19 15:30 | NUR ---
Patient resting quietly with no c/o discomfort. Respirations easy and regular. Vital signs stable. No overt distress. KYLAH ABDALLA
[2017-09-19 16:00] VITALS: BP 136/82
--- NOTE | 2017-09-19 16:00 | NUR ---
PT GIVEN PRN PO ULTRAM FOR COMPLAINTS OF RIGHT HAND/ARM CRAMPING. WILL MONITOR.
--- NOTE | 2017-09-19 17:00 | NUR ---
PT STATES MEDS EFFECTIVE FOR PAIN.
[2017-09-19 20:00] VITALS: BP 132/75
--- NOTE | 2017-09-19 21:30 | NUR ---
PRN MEDS SUCCESFUL. WILL CONTINUE TO MONITOR PT.
--- NOTE | 2017-09-19 22:00 | NUR ---
PT AMARJIT SRINIVASANCO AND RAHUL FOR PAIN AND INSOMNIA. WILL CONTINUE TO MONITOR PT.
[2017-09-20] VITALS: BP 116/71
--- NOTE | 2017-09-20 06:00 | NUR ---
PT REFUSES DIALYSIS TODAY. DIALYSIS CLINIC CONTACTED.
[2017-09-20 06:47] LABS: BASO % 0.4 % (0.0-1.0); EOS # 0.3 10*3/uL (0.0-0.4); EOS % 3.5 % (1.0-4.0); HEMATOCRIT 28.4 % (37.0-47.0); HEMOGLOBIN 9.4 g/dl (12.0-16.0); LYMPH # 0.4 10*3/uL (1.3-4.4); LYMPH % 5.1 % (27.0-41.0); MEAN CELL VOLUME 89.6 fl (81.0-99.0); MEAN CORPUSCULAR HGB 29.7 pg (27.0-31.0); MEAN CORPUSCULAR HGB CONC 33.1 g/dl (33.0-37.0); MEAN PLATELET VOLUME 10.5 fl (9.6-12.3); MONO # 0.9 10*3/uL (0.1-1.0); MONO % 11.7 % (3.0-9.0); NEUT # 6.1 10*3/uL (2.3-7.9); NEUT % 78.8 % (47.0-73.0); PLATELET COUNT AUTOMATED 159 10*3/uL (130-400); RED BLOOD COUNT 3.17 10*6/uL (4.10-5.10); RED CELL DISTRI WIDTH 15.3 % (0-14.5); WHITE BLOOD COUNT 7.8 10*3/uL (4.8-10.8)
[2017-09-20 07:05] LABS: ALBUMIN 1.4 gm/dl (3.1-4.5); CREATININE 4.97 mg/dL (0.55-1.02); PHOSPHOROUS 6.9 mg/dL (2.5-4.9); POTASSIUM 4.3 mmol/L (3.5-5.1)
--- NOTE | 2017-09-20 07:55 | NUR ---
SPOKE WITH PT THIS MORNING RE: DIALYSIS TODAY. SHE STILL REFUSES. SHE STATES SHE WILL WAIT TILL MONDAY. DIALYSIS NURSE CALLED UNIT AND SHE WAS NOTIFIED THAT PT IS STILL REFUSING. SHE STATES SHE WILL NOTIFY DR SHAH.
[2017-09-20 08:00] VITALS: BP 128/78
--- NOTE | 2017-09-20 08:59 | NUR ---
DR TAPIA NOTIFIED PT REFUSED DIALYSIS BC CXR IS ORDERED FOR AFTER DIALYSIS. HE STATES HE WILL CANCEL IT.
--- NOTE | 2017-09-20 09:25 | NUR ---
case management visits with patient, patient denies any home needs
[2017-09-20 12:00] VITALS: BP 126/84
--- NOTE | 2017-09-20 14:00 | NUR ---
Patient resting quietly with no c/o discomfort. Respirations easy and regular. Vital signs stable. No overt distress. JODIE CHUNG R
[2017-09-20] MEDS ORDERED: VIBRAMYCIN100 MG PO (15:07)
--- NOTE | 2017-09-20 17:35 | NUR ---
Discharge instructions reviewed with patient/family. Patient receptive and verbalizes understanding. Follow-up care arranged. Written instructions given to patient/family. JODIE CHUNG
== END 2017-09-20 17:35 | disposition home or self-care (01) | DRG 871 ==
LOC: ED 09:11 → 4E 10:51 → EDHOLD 10:51 → 4E 11:03
PROVIDERS: Internal Medicine; Internal Medicine Nephrology; Nurse Practitioner Family; ADMIT Internal Medicine
DX: A41.9 Sepsis, unspecified organism (principal); N18.6 End stage renal disease; E43 Unspecified severe protein-calorie malnutrition; J18.9 Pneumonia, unspecified organism; D68.59 Other primary thrombophilia; I12.0 Hypertensive chronic kidney disease with stage 5 chronic kidney disease or end stage renal disease; E87.1 Hypo-osmolality and hyponatremia; E83.39 Other disorders of phosphorus metabolism; F17.200 Nicotine dependence, unspecified, uncomplicated; M19.90 Unspecified osteoarthritis, unspecified site; G89.29 Other chronic pain; M54.9 Dorsalgia, unspecified; K21.9 Gastro-esophageal reflux disease without esophagitis; G47.00 Insomnia, unspecified; D64.9 Anemia, unspecified; F41.8 Other specified anxiety disorders; Z93.6 Other artificial openings of urinary tract status; Z99.2 Dependence on renal dialysis; Z88.1 Allergy status to other antibiotic agents; Z88.8 Allergy status to other drugs, medicaments and biological substances; Z79.899 Other long term (current) drug therapy; Z79.82 Long term (current) use of aspirin; Z90.49 Acquired absence of other specified parts of digestive tract; Z93.3 Colostomy status; Z90.5 Acquired absence of kidney; Z82.49 Family history of ischemic heart disease and other diseases of the circulatory system; Z83.6 Family history of other diseases of the respiratory system; Z80.9 Family history of malignant neoplasm, unspecified; Z86.73 Personal history of transient ischemic attack (TIA), and cerebral infarction without residual deficits; Z86.718 Personal history of other venous thrombosis and embolism; Z74.01 Bed confinement status; Z88.6 Allergy status to analgesic agent; Z71.6 Tobacco abuse counseling; Z68.36 Body mass index [BMI] 36.0-36.9, adult

== ENCOUNTER 2017-10-04 21:45 | Inpatient (IN) | payer MEDICARE ==
[~2017-10-04] VITALS: Ht 134.6 cm; Wt 35.4 kg
--- NOTE | ~2017-10-04 | EKG ---
[place], [place] ELECTROCARDIOGRAM REPORT NAME: CORINNE METZ UNIT #: [id number] ROOM: [facility] DOCTOR: CASE GROVE,ROBERTO BIRTHDATE: [birth year] DOS: 10/04/2017 TIME: 2201 hours. IMPRESSION: 1. Sinus rhythm, sinus tachycardia. 2. Probable left atrial enlargement. 3. Incomplete right bundle-branch block. 4. Low voltage complexes. 5. Normal QT interval. ROBERTO WILLOUGHBY MD CM:EKGRPT:ELECTROCARDIOGRAM REPORT [id number] ROBERTO WILLOUGHBY MD
--- NOTE | ~2017-10-04 | EKG ---
[place], [place] ELECTROCARDIOGRAM REPORT NAME: CORINNE METZ UNIT #: [id number] ROOM: [facility] DOCTOR: CAES GROVE,ROBERTO BIRTHDATE: [birth year] DOS: 10/05/2017 TIME: 1859 Hours. IMPRESSION: 1. Sinus rhythm, sinus tachycardia. 2. Anterior T-wave inversion, consider ischemia. 3. Low voltage complexes. 4. Baseline artifact. 5. Prolonged QTC interval. ROBERTO WILLOUGHBY MD CM:EKGRPT:ELECTROCARDIOGRAM REPORT [id number] ROBERTO WILLOUGHBY MD
[~2017-10-04 21:45] MED LIST changes: +ONDANSETRON HYDR4 M1 PO; +SODIUM BICARBO650 MG PO; +VIBRAMYCIN100 MG PO; +VITAMIN D-32000 UNI1 PO; +VOL-CARE RX TA1 EACH PO
[2017-10-04 21:50] VITALS: BP 150/100
[2017-10-04 22:21] LABS: BASO # 0.1 10*3/uL (0.0-0.1); BASO % 0.8 % (0.0-1.0); EOS % 0.4 % (1.0-4.0); HEMATOCRIT 34.3 % (37.0-47.0); HEMOGLOBIN 10.9 g/dl (12.0-16.0); LYMPH # 0.4 10*3/uL (1.3-4.4); MEAN CORPUSCULAR HGB 29.5 pg (27.0-31.0); MEAN CORPUSCULAR HGB CONC 31.8 g/dl (33.0-37.0); MEAN PLATELET VOLUME 9.6 fl (9.6-12.3); MONO # 0.6 10*3/uL (0.1-1.0); MONO % 6.9 % (3.0-9.0); NEUT # 6.9 10*3/uL (2.3-7.9); NEUT % 86.4 % (47.0-73.0); PLATELET COUNT AUTOMATED 284 10*3/uL (130-400); RED BLOOD COUNT 3.69 10*6/uL (4.10-5.10); RED CELL DISTRI WIDTH 16.4 % (0-14.5)
[2017-10-04 22:27] LABS: BILIRUBIN NEGATIVE (NEGATIVE); BLOOD 1+ (NEGATIVE); CLARITY SL CLOUDY (CLEAR); COLOR YELLOW (YELLOW); GLUCOSE NEGATIVE (NEGATIVE); KETONE NEGATIVE (NEGATIVE); LEUKO ESTERASE NEGATIVE (NEGATIVE); NITRITE POSITIVE (NEGATIVE); PH 6.5 (5.0-9.0); SPECIFIC GRAVITY 1.015 (1.005-1.030); UROBILINOGEN 0.2 E.U./dl (0.2-1.0)
[2017-10-04 22:35] LABS: ACT PARTIAL THROMBO TIME 30.3 SECONDS (20.8-31.5); INTERNATIONAL NORM RATIO 1.1 (2.0-3.5)
[2017-10-04 22:38] LABS: BACTERIA 1+; YEAST TRACE
[2017-10-04 22:39] VITALS: BP 118/68
[2017-10-04 22:39] LABS: ALBUMIN 1.8 gm/dl (3.1-4.5); ALKALINE PHOSPHATASE 106 U/L (45-117); BUN 87 mg/dl (7-24); CHLORIDE 109 mmol/L (98-107); CREATININE 6.81 mg/dL (0.55-1.02); SGOT/AST 39 IU/L (3-35); SGPT/ALT 30 U/L (12-78); SODIUM 139 mmol/L (136-145); TOTAL PROTEIN 5.5 gm/dL (6.4-8.2)
[2017-10-04 22:39] LABS: WBC 0-2 wbc/hpf (0-5)
[2017-10-04 22:43] LABS: POTASSIUM 6.1 mmol/L (3.5-5.1); TROPONIN I < 0.015 ng/ml (<0.045)
[2017-10-05 01:10] VITALS: BP 132/83
[2017-10-05] MEDS ORDERED: ATORVASTATIN CA40 M1 PO (01:25)
[2017-10-05 04:00] VITALS: BP 107/68
[2017-10-05 04:33] LABS: BASO % 0.3 % (0.0-1.0); EOS % 0.1 % (1.0-4.0); HEMOGLOBIN 9.2 g/dl (12.0-16.0); LYMPH # 0.4 10*3/uL (1.3-4.4); LYMPH % 4.5 % (27.0-41.0); MEAN CELL VOLUME 91.5 fl (81.0-99.0); MEAN CORPUSCULAR HGB CONC 32.7 g/dl (33.0-37.0); MEAN PLATELET VOLUME 9.3 fl (9.6-12.3); MONO # 0.6 10*3/uL (0.1-1.0); MONO % 7.1 % (3.0-9.0); NEUT % 87.5 % (47.0-73.0); PLATELET COUNT AUTOMATED 243 10*3/uL (130-400); RED BLOOD COUNT 3.07 10*6/uL (4.10-5.10); RED CELL DISTRI WIDTH 16.3 % (0-14.5)
[2017-10-05 04:36] LABS: HEMATOCRIT 28.1 % (37.0-47.0)
[2017-10-05 04:46] LABS: ACT PARTIAL THROMBO TIME 31.5 SECONDS (20.8-31.5); INTERNATIONAL NORM RATIO 1.2 (2.0-3.5)
[2017-10-05 04:52] LABS: ALBUMIN 1.5 gm/dl (3.1-4.5); CREATININE 6.49 mg/dL (0.55-1.02); PHOSPHOROUS 7.1 mg/dL (2.5-4.9); TOTAL PROTEIN 4.7 gm/dL (6.4-8.2)
[2017-10-05 04:54] LABS: POTASSIUM 6.2 mmol/L (3.5-5.1)
[2017-10-05 08:00] VITALS: BP 105/68
[2017-10-05 12:00] VITALS: BP 97/63
[2017-10-05 16:00] VITALS: BP 98/60
[2017-10-05 20:00] VITALS: BP 92/61
[2017-10-06] VITALS (8 sets, daily range): BP systolic 68–131; BP diastolic 38–75
[2017-10-06 04:33] LABS: HEMATOCRIT 27.9 % (37.0-47.0); HEMOGLOBIN 9.1 g/dl (12.0-16.0); MEAN CELL VOLUME 91.2 fl (81.0-99.0); MEAN CORPUSCULAR HGB 29.7 pg (27.0-31.0); MEAN CORPUSCULAR HGB CONC 32.6 g/dl (33.0-37.0); MEAN PLATELET VOLUME 9.4 fl (9.6-12.3); PLATELET COUNT AUTOMATED 195 10*3/uL (130-400); RED BLOOD COUNT 3.06 10*6/uL (4.10-5.10); RED CELL DISTRI WIDTH 16.4 % (0-14.5); WHITE BLOOD COUNT 9.7 10*3/uL (4.8-10.8)
[2017-10-06 04:56] LABS: ATYPICAL LYMPHS 1 % (0-0); BASOPHILS 1 % (0-1); PLATELET SUFFICIENCY NORMAL (NORMAL); TOTAL CELLS COUNTED 100 #CELLS
[2017-10-06 04:57] LABS: OVALOCYTES FEW
[2017-10-06 04:58] LABS: MICROCYTOSIS SLIGHT
[2017-10-06 11:06] LABS: ALBUMIN 1.3 gm/dl (3.1-4.5); CREATININE 2.94 mg/dL (0.55-1.02); PHOSPHOROUS 5.9 mg/dL (2.5-4.9)
[2017-10-06 11:07] LABS: POTASSIUM 4.1 mmol/L (3.5-5.1)
[2017-10-07] VITALS: BP 105/66
[2017-10-07 04:00] VITALS: BP 112/72
[2017-10-07 06:01] LABS: HEMATOCRIT 30.1 % (37.0-47.0); HEMOGLOBIN 9.6 g/dl (12.0-16.0); MEAN CELL VOLUME 92.6 fl (81.0-99.0); MEAN CORPUSCULAR HGB 29.5 pg (27.0-31.0); MEAN CORPUSCULAR HGB CONC 31.9 g/dl (33.0-37.0); MEAN PLATELET VOLUME 10.5 fl (9.6-12.3); PLATELET COUNT AUTOMATED 198 10*3/uL (130-400); RED BLOOD COUNT 3.25 10*6/uL (4.10-5.10); RED CELL DISTRI WIDTH 16.6 % (0-14.5); WHITE BLOOD COUNT 7.8 10*3/uL (4.8-10.8)
[2017-10-07 06:28] LABS: ALBUMIN 1.4 gm/dl (3.1-4.5); CREATININE 3.6 mg/dL (0.55-1.02); PHOSPHOROUS 7.4 mg/dL (2.5-4.9); POTASSIUM 4.6 mmol/L (3.5-5.1); TOTAL PROTEIN 4.7 gm/dL (6.4-8.2)
[2017-10-07 06:41] LABS: BURR CELLS FEW; PLATELET SUFFICIENCY NORMAL (NORMAL); POLYCHROMASIA SLIGHT; TOTAL CELLS COUNTED 100 #CELLS
[2017-10-07 08:01] VITALS: BP 100/62
[2017-10-07 12:00] VITALS: BP 108/64
[2017-10-07 16:00] VITALS: BP 104/68
[2017-10-07 20:00] VITALS: BP 79/47
[2017-10-08] VITALS: BP 90/52
[2017-10-08 06:22] LABS: HEMATOCRIT 32.9 % (37.0-47.0); HEMOGLOBIN 10.4 g/dl (12.0-16.0); MEAN CELL VOLUME 94.3 fl (81.0-99.0); MEAN CORPUSCULAR HGB 29.8 pg (27.0-31.0); MEAN CORPUSCULAR HGB CONC 31.6 g/dl (33.0-37.0); MEAN PLATELET VOLUME 9.8 fl (9.6-12.3); PLATELET COUNT AUTOMATED 181 10*3/uL (130-400); RED BLOOD COUNT 3.49 10*6/uL (4.10-5.10); RED CELL DISTRI WIDTH 16.7 % (0-14.5); WHITE BLOOD COUNT 7.3 10*3/uL (4.8-10.8)
[2017-10-08 06:38] LABS: ALBUMIN 1.5 gm/dl (3.1-4.5); CREATININE 4.21 mg/dL (0.55-1.02); POTASSIUM 4.6 mmol/L (3.5-5.1)
[2017-10-08 06:50] LABS: BURR CELLS FEW; PLATELET SUFFICIENCY NORMAL (NORMAL); SCHISTOCYTES FEW; TOTAL CELLS COUNTED 100 #CELLS
[2017-10-08 08:00] VITALS: BP 96/48
[2017-10-08 12:00] VITALS: BP 100/50
[2017-10-08 16:00] VITALS: BP 90/55
[2017-10-08 20:00] VITALS: BP 92/53
[2017-10-09] VITALS: BP 94/56
[2017-10-09 06:50] LABS: HEMATOCRIT 30.4 % (37.0-47.0); HEMOGLOBIN 9.8 g/dl (12.0-16.0); MEAN CELL VOLUME 94.1 fl (81.0-99.0); MEAN CORPUSCULAR HGB 30.3 pg (27.0-31.0); MEAN CORPUSCULAR HGB CONC 32.2 g/dl (33.0-37.0); PLATELET COUNT AUTOMATED 174 10*3/uL (130-400); RED BLOOD COUNT 3.23 10*6/uL (4.10-5.10); RED CELL DISTRI WIDTH 16.7 % (0-14.5); WHITE BLOOD COUNT 9.1 10*3/uL (4.8-10.8)
[2017-10-09 07:07] LABS: ALBUMIN 1.4 gm/dl (3.1-4.5); CREATININE 4.81 mg/dL (0.55-1.02); PHOSPHOROUS 7.7 mg/dL (2.5-4.9); POTASSIUM 4.7 mmol/L (3.5-5.1)
[2017-10-09 07:40] LABS: BURR CELLS MANY; PLATELET SUFFICIENCY NORMAL (NORMAL); POLYCHROMASIA SLIGHT; TOTAL CELLS COUNTED 100 #CELLS
[2017-10-09 08:00] VITALS: BP 94/63
[2017-10-09] MEDS ORDERED: LEVAQUIN250 M1 PO (12:19)
== END 2017-10-09 13:46 | disposition home or self-care (01) | DRG 871 ==
LOC: ED 21:45 → EDHOLD 23:12 → ICCU 23:12 → 5E 10-07 13:35
PROVIDERS: Family Medicine; Registered Nurse; Student in an Organized Health Care Education/Training Program
PROC: 5A1D70Z Performance of Urinary Filtration, Intermittent, Less than 6 Hours Per Day (ICD-10-PCS; principal; 2017-10-05)
DX: A41.9 Sepsis, unspecified organism (principal); J18.9 Pneumonia, unspecified organism; J96.00 Acute respiratory failure, unspecified whether with hypoxia or hypercapnia; E43 Unspecified severe protein-calorie malnutrition; N18.6 End stage renal disease; D68.59 Other primary thrombophilia; E87.5 Hyperkalemia; N39.0 Urinary tract infection, site not specified; Z68.1 Body mass index [BMI] 19.9 or less, adult; N31.9 Neuromuscular dysfunction of bladder, unspecified; I77.0 Arteriovenous fistula, acquired; F41.8 Other specified anxiety disorders; M19.90 Unspecified osteoarthritis, unspecified site; G89.29 Other chronic pain; M54.9 Dorsalgia, unspecified; K21.9 Gastro-esophageal reflux disease without esophagitis; G47.00 Insomnia, unspecified; D64.9 Anemia, unspecified; D72.810 Lymphocytopenia; R00.0 Tachycardia, unspecified; Z53.29 Procedure and treatment not carried out because of patient's decision for other reasons; R31.9 Hematuria, unspecified; K08.409 Partial loss of teeth, unspecified cause, unspecified class; Z86.718 Personal history of other venous thrombosis and embolism; Z91.14 Patient's other noncompliance with medication regimen; Z86.73 Personal history of transient ischemic attack (TIA), and cerebral infarction without residual deficits; Z93.3 Colostomy status; Q05.9 Spina bifida, unspecified; Z79.899 Other long term (current) drug therapy; Z90.49 Acquired absence of other specified parts of digestive tract; Z90.5 Acquired absence of kidney; Z82.49 Family history of ischemic heart disease and other diseases of the circulatory system; Z82.0 Family history of epilepsy and other diseases of the nervous system; Z83.6 Family history of other diseases of the respiratory system; Z82.79 Family history of other congenital malformations, deformations and chromosomal abnormalities; Z88.6 Allergy status to analgesic agent; Z88.1 Allergy status to other antibiotic agents; Z88.8 Allergy status to other drugs, medicaments and biological substances; Z71.6 Tobacco abuse counseling; Z72.0 Tobacco use; Z98.2 Presence of cerebrospinal fluid drainage device; Z91.15 Patient's noncompliance with renal dialysis; Z74.01 Bed confinement status

== ENCOUNTER 2017-10-11 08:27 | Emergency (ER) | payer MEDICARE ==
[~2017-10-11] VITALS: Ht 134.6 cm; Wt 34.9 kg
[2017-10-11 09:11] LABS: HEMOGLOBIN 10.7 g/dl (12.0-16.0); MEAN CELL VOLUME 89.1 fl (81.0-99.0); MEAN CORPUSCULAR HGB 29.8 pg (27.0-31.0); MEAN CORPUSCULAR HGB CONC 33.4 g/dl (33.0-37.0); MEAN PLATELET VOLUME 9.3 fl (9.6-12.3); PLATELET COUNT AUTOMATED 136 10*3/uL (130-400); RED BLOOD COUNT 3.59 10*6/uL (4.10-5.10); RED CELL DISTRI WIDTH 16.8 % (0-14.5); WHITE BLOOD COUNT 11.7 10*3/uL (4.8-10.8)
[2017-10-11 09:27] LABS: ALBUMIN 1.3 gm/dl (3.1-4.5); CREATININE 5.89 mg/dL (0.55-1.02); TOTAL PROTEIN 4.5 gm/dL (6.4-8.2)
[2017-10-11 09:32] LABS: TROPONIN I 0.273 ng/ml (<0.045)
[2017-10-11 09:39] LABS: ATYPICAL LYMPHS 1 % (0-0); PLATELET SUFFICIENCY NORMAL (NORMAL); TOTAL CELLS COUNTED 100 #CELLS
[2017-10-11 09:46] LABS: ACT PARTIAL THROMBO TIME 47.8 SECONDS (19.5-32.1); INTERNATIONAL NORM RATIO 1.2 (2.0-3.5)
[2017-10-11 10:00] VITALS: BP 137/81
[2017-10-11 10:40] LABS: ABG BASE EXCESS -3.9 mmol/L (-2.0-2.0); ABG HCO3 21.3 mmol/l (22-26); ABG O2 SATURATION 65.8 % (95-97); ARTERIAL BLOOD GAS PCO2 42.1 mmHg (35-45); ARTERIAL BLOOD GAS PH 7.326 (7.35-7.45)
== END 2017-10-11 11:25 | disposition short-term general hospital (02) ==
LOC: ED 08:27
PROVIDERS: Emergency Medicine
DX: R51 Headache (principal); J81.1 Chronic pulmonary edema; R09.02 Hypoxemia; K21.9 Gastro-esophageal reflux disease without esophagitis; G89.29 Other chronic pain; N18.6 End stage renal disease; F32.9 Major depressive disorder, single episode, unspecified; F17.210 Nicotine dependence, cigarettes, uncomplicated; F41.9 Anxiety disorder, unspecified; G47.00 Insomnia, unspecified; Z86.718 Personal history of other venous thrombosis and embolism; Z99.2 Dependence on renal dialysis; Z90.49 Acquired absence of other specified parts of digestive tract; Z98.2 Presence of cerebrospinal fluid drainage device; Z93.3 Colostomy status; Z90.89 Acquired absence of other organs; Z88.6 Allergy status to analgesic agent; Z88.8 Allergy status to other drugs, medicaments and biological substances; Z79.899 Other long term (current) drug therapy; Z86.73 Personal history of transient ischemic attack (TIA), and cerebral infarction without residual deficits

== ENCOUNTER → 2017-11-28 | Outpatient (CLI) | payer MEDICARE | END | disposition home or self-care (01) | LOC: WOUNDCARE 04:01 | DX: E11.622 Type 2 diabetes mellitus with other skin ulcer (principal); L89.324 Pressure ulcer of left buttock, stage 4; L89.153 Pressure ulcer of sacral region, stage 3; L98.411 Non-pressure chronic ulcer of buttock limited to breakdown of skin; L98.491 Non-pressure chronic ulcer of skin of other sites limited to breakdown of skin; L97.821 Non-pressure chronic ulcer of other part of left lower leg limited to breakdown of skin; E11.621 Type 2 diabetes mellitus with foot ulcer; L89.612 Pressure ulcer of right heel, stage 2; L89.890 Pressure ulcer of other site, unstageable; L97.411 Non-pressure chronic ulcer of right heel and midfoot limited to breakdown of skin; L97.521 Non-pressure chronic ulcer of other part of left foot limited to breakdown of skin; N18.6 End stage renal disease; F17.200 Nicotine dependence, unspecified, uncomplicated ==

== ENCOUNTER → 2017-12-05 | Outpatient (CLI) | payer MEDICARE | END | disposition home or self-care (01) | LOC: WOUNDCARE 02:30 | DX: E11.622 Type 2 diabetes mellitus with other skin ulcer (principal); L89.324 Pressure ulcer of left buttock, stage 4; L89.153 Pressure ulcer of sacral region, stage 3; L98.411 Non-pressure chronic ulcer of buttock limited to breakdown of skin; L97.821 Non-pressure chronic ulcer of other part of left lower leg limited to breakdown of skin; E11.621 Type 2 diabetes mellitus with foot ulcer; L89.612 Pressure ulcer of right heel, stage 2; L89.899 Pressure ulcer of other site, unspecified stage; L97.411 Non-pressure chronic ulcer of right heel and midfoot limited to breakdown of skin; L97.521 Non-pressure chronic ulcer of other part of left foot limited to breakdown of skin; E11.22 Type 2 diabetes mellitus with diabetic chronic kidney disease; N18.6 End stage renal disease; Q05.9 Spina bifida, unspecified; F17.200 Nicotine dependence, unspecified, uncomplicated ==

== ENCOUNTER → 2017-12-12 | Outpatient (CLI) | payer MEDICARE | END | disposition home or self-care (01) | LOC: US 01:33 | DX: Z86.31 Personal history of diabetic foot ulcer (principal); E10.621 Type 1 diabetes mellitus with foot ulcer; E08.22 Diabetes mellitus due to underlying condition with diabetic chronic kidney disease ==

== ENCOUNTER 2017-12-24 23:10 | Emergency (ER) | payer MEDICARE ==
[~2017-12-24] VITALS: Wt 39.0 kg
[2017-12-24 23:44] LABS: HEMATOCRIT 33.7 % (37.0-47.0); HEMOGLOBIN 10.2 g/dl (12.0-16.0); MEAN CORPUSCULAR HGB 29.1 pg (27.0-31.0); MEAN CORPUSCULAR HGB CONC 30.3 g/dl (33.0-37.0); MEAN PLATELET VOLUME 9.6 fl (9.6-12.3); PLATELET COUNT AUTOMATED 258 10*3/uL (130-400); RED BLOOD COUNT 3.51 10*6/uL (4.10-5.10); RED CELL DISTRI WIDTH 16.6 % (0-14.5); WHITE BLOOD COUNT 14.1 10*3/uL (4.8-10.8)
[2017-12-25] LABS: ALBUMIN 2.3 gm/dl (3.1-4.5); CREATININE 5.8 mg/dL (0.55-1.02); POTASSIUM 5.5 mmol/L (3.5-5.1)
[2017-12-25 00:04] LABS: PLATELET SUFFICIENCY NORMAL (NORMAL); TOTAL CELLS COUNTED 100 #CELLS
[2017-12-25 00:58] VITALS: BP 177/99
== END 2017-12-25 01:46 | disposition home or self-care (01) ==
LOC: ED 23:10
PROVIDERS: Nurse Practitioner Family
DX: Z00.8 Encounter for other general examination (principal); F17.200 Nicotine dependence, unspecified, uncomplicated; Z88.1 Allergy status to other antibiotic agents; Z88.8 Allergy status to other drugs, medicaments and biological substances; Z79.899 Other long term (current) drug therapy; Z79.82 Long term (current) use of aspirin

== ENCOUNTER → 2018-02-01 | Outpatient (CLI) | payer MEDICARE ==
[~2018-02-01] MED LIST changes: +DOXYCYCLINE100 M3 PO; +GOOD NEIGHBOR L10 MG PO; +LACTAID3000 UNI1 PO; +NICODERM CQ1 EAC2 TD; +NORVASC2.5 MG PO; +PROPRANOLOL HCL20 M1 PO
== END | disposition home or self-care (01) ==
LOC: WOUNDCARE 05:47
DX: L89.321 Pressure ulcer of left buttock, stage 1 (principal); L89.311 Pressure ulcer of right buttock, stage 1; L89.153 Pressure ulcer of sacral region, stage 3; L89.44 Pressure ulcer of contiguous site of back, buttock and hip, stage 4; Q05.9 Spina bifida, unspecified; N18.6 End stage renal disease; F17.200 Nicotine dependence, unspecified, uncomplicated; Z93.3 Colostomy status; Z90.49 Acquired absence of other specified parts of digestive tract

== ENCOUNTER 2018-03-21 13:27 | Emergency (ER) | payer MEDICARE ==
[~2018-03-21] VITALS: Ht 91.4 cm; Wt 22.7 kg
--- NOTE | ~2018-03-21 | EKG ---
[place], [place] ELECTROCARDIOGRAM REPORT NAME: CORINNE METZ UNIT #: [id number] ROOM: DOCTOR: COLT TUBBS MD,BRADY BIRTHDATE: [birth year] DOS: 03/21/2018 Electrocardiogram showed normal sinus rhythm. Heart rate 81 beats per minute. Right bundle branch block abnormality noted. Lead II was noted malfunctioning, so the recording was not done. Nonspecific ST-T changes were noted. BRADY GREGORY MD CM:EKGRPT:ELECTROCARDIOGRAM REPORT [id number] BRADY TUBBS MD
[2018-03-21 14:27] LABS: ABG HCO3 15.1 mmol/l (22-26); ABG O2 SATURATION 99.4 % (95-97); ARTERIAL BLOOD GAS PCO2 36.2 mmHg (35-45); ARTERIAL BLOOD GAS PH 7.242 (7.35-7.45)
[2018-03-21 14:29] LABS: ABG BASE EXCESS -11.2 mmol/L (-2.0-2.0)
[2018-03-21 14:33] LABS: BASO # 0.1 10*3/uL (0.0-0.1); BASO % 0.6 % (0.0-1.0); EOS # 0.6 10*3/uL (0.0-0.4); EOS % 4.5 % (1.0-4.0); HEMATOCRIT 42.9 % (37.0-47.0); HEMOGLOBIN 12.9 g/dl (12.0-16.0); LYMPH # 0.5 10*3/uL (1.3-4.4); LYMPH % 3.5 % (27.0-41.0); MEAN CELL VOLUME 96.4 fl (81.0-99.0); MEAN CORPUSCULAR HGB CONC 30.1 g/dl (33.0-37.0); MEAN PLATELET VOLUME 9.4 fl (9.6-12.3); MONO # 0.6 10*3/uL (0.1-1.0); MONO % 4.9 % (3.0-9.0); PLATELET COUNT AUTOMATED 291 10*3/uL (130-400); RED BLOOD COUNT 4.45 10*6/uL (4.10-5.10); RED CELL DISTRI WIDTH 16.3 % (0-14.5); WHITE BLOOD COUNT 12.8 10*3/uL (4.8-10.8)
[2018-03-21 14:40] LABS: BILIRUBIN NEGATIVE (NEGATIVE); BLOOD TRACE-INTACT (NEGATIVE); CLARITY CLOUDY (CLEAR); COLOR YELLOW (YELLOW); GLUCOSE NEGATIVE (NEGATIVE); KETONE NEGATIVE (NEGATIVE); LEUKO ESTERASE TRACE (NEGATIVE); NITRITE NEGATIVE (NEGATIVE); UROBILINOGEN 0.2 E.U./dl (0.2-1.0)
[2018-03-21 14:44] LABS: ACT PARTIAL THROMBO TIME 27.1 SECONDS (20.8-31.5); INTERNATIONAL NORM RATIO 1.1 (2.0-3.5)
[2018-03-21 14:48] LABS: ALBUMIN 2.3 gm/dl (3.1-4.5); ALKALINE PHOSPHATASE 116 U/L (45-117); BUN 87 mg/dl (7-24); CHLORIDE 104 mmol/L (98-107); CREATININE 6.36 mg/dL (0.55-1.02); LIPASE 228 U/L (73-393); POTASSIUM 5.6 mmol/L (3.5-5.1); SGOT/AST 22 IU/L (3-35); SGPT/ALT 23 U/L (12-78); SODIUM 136 mmol/L (136-145); TOTAL PROTEIN 6.3 gm/dL (6.4-8.2)
[2018-03-21 14:49] LABS: BACTERIA 4+; EPITHELIAL CELLS 0-2
[2018-03-21 14:51] LABS: TROPONIN I < 0.015 ng/ml (<0.045)
[2018-03-22 01:00] VITALS: BP 147/62
== END 2018-03-22 02:50 | disposition short-term general hospital (02) ==
LOC: ED 13:27
PROVIDERS: Emergency Medicine
DX: R56.9 Unspecified convulsions (principal); K21.9 Gastro-esophageal reflux disease without esophagitis; I12.0 Hypertensive chronic kidney disease with stage 5 chronic kidney disease or end stage renal disease; N18.6 End stage renal disease; F17.200 Nicotine dependence, unspecified, uncomplicated; Z88.6 Allergy status to analgesic agent; Z88.1 Allergy status to other antibiotic agents; Z88.8 Allergy status to other drugs, medicaments and biological substances; Z79.899 Other long term (current) drug therapy; Z86.718 Personal history of other venous thrombosis and embolism; Z86.73 Personal history of transient ischemic attack (TIA), and cerebral infarction without residual deficits

== ENCOUNTER → 2018-03-30 | Outpatient (CLI) | payer MEDICARE | END | disposition home or self-care (01) | LOC: WOUNDCARE 02-08 08:43 | DX: L89.322 Pressure ulcer of left buttock, stage 2 (principal); L89.892 Pressure ulcer of other site, stage 2; N76.6 Ulceration of vulva; Q05.9 Spina bifida, unspecified; N18.6 End stage renal disease; Z93.3 Colostomy status; Z90.5 Acquired absence of kidney; F17.200 Nicotine dependence, unspecified, uncomplicated; Z71.6 Tobacco abuse counseling ==

== ENCOUNTER → 2018-04-06 | Outpatient (CLI) | payer MEDICARE | END | disposition home or self-care (01) | LOC: WOUNDCARE 03:44 | DX: L89.322 Pressure ulcer of left buttock, stage 2 (principal); L89.892 Pressure ulcer of other site, stage 2; Q05.9 Spina bifida, unspecified; N76.6 Ulceration of vulva; N18.6 End stage renal disease; F17.200 Nicotine dependence, unspecified, uncomplicated; Z90.49 Acquired absence of other specified parts of digestive tract; Z71.6 Tobacco abuse counseling ==

== ENCOUNTER → 2018-04-13 | Outpatient (CLI) | payer MEDICARE | LOC: WOUNDCARE 02:57 | DX: L89.322 Pressure ulcer of left buttock, stage 2 (principal); L89.892 Pressure ulcer of other site, stage 2; Q05.9 Spina bifida, unspecified; N18.6 End stage renal disease; F17.210 Nicotine dependence, cigarettes, uncomplicated ==

== ENCOUNTER → 2018-04-27 | Outpatient (CLI) | payer MEDICARE | END | disposition home or self-care (01) | LOC: WOUNDCARE 02:07 | DX: L89.322 Pressure ulcer of left buttock, stage 2 (principal); L89.892 Pressure ulcer of other site, stage 2; Q05.9 Spina bifida, unspecified; N76.6 Ulceration of vulva; N18.6 End stage renal disease; F17.200 Nicotine dependence, unspecified, uncomplicated; Z71.6 Tobacco abuse counseling; Z90.49 Acquired absence of other specified parts of digestive tract ==

== ENCOUNTER → 2018-06-01 | Outpatient (CLI) | payer MEDICARE, OTHER ==
[~2018-06-01] MED LIST changes: +AMINOPHYLLIN200 MG PO; +KEPPRA250 MG PO; +MEDROXYPROGESTE10 M1 PO; +Synthroid,Levo75 MCG PO
== END | disposition home or self-care (01) ==
LOC: WOUNDCARE 05:41
DX: L89.223 Pressure ulcer of left hip, stage 3 (principal); L89.322 Pressure ulcer of left buttock, stage 2; L89.892 Pressure ulcer of other site, stage 2; N76.6 Ulceration of vulva; Q05.9 Spina bifida, unspecified; N18.6 End stage renal disease; F17.200 Nicotine dependence, unspecified, uncomplicated; Z71.6 Tobacco abuse counseling

== ENCOUNTER → 2018-06-08 | Outpatient (CLI) | payer MEDICARE | END | disposition home or self-care (01) | LOC: WOUNDCARE 04:13 | DX: L89.322 Pressure ulcer of left buttock, stage 2 (principal); L89.892 Pressure ulcer of other site, stage 2; L89.222 Pressure ulcer of left hip, stage 2; N18.6 End stage renal disease; Q05.9 Spina bifida, unspecified; F17.200 Nicotine dependence, unspecified, uncomplicated; Z71.6 Tobacco abuse counseling ==

== ENCOUNTER 2018-06-14 21:55 | Emergency (ER) | payer MEDICARE ==
[~2018-06-14] VITALS: Ht 134.6 cm; Wt 40.8 kg
[~2018-06-14 21:55] MED LIST changes: -AMINOPHYLLIN200 MG PO; -KEPPRA250 MG PO; -MEDROXYPROGESTE10 M1 PO; -Synthroid,Levo75 MCG PO
[2018-06-14 22:00] VITALS: BP 166/93
[2018-06-14 22:50] LABS: BASO # 0.1 10*3/uL (0.0-0.1); BASO % 0.7 % (0.0-1.0); EOS # 0.5 10*3/uL (0.0-0.4); EOS % 6.3 % (1.0-4.0); HEMATOCRIT 29.4 % (37.0-47.0); HEMOGLOBIN 9.4 g/dl (12.0-16.0); LYMPH # 0.4 10*3/uL (1.3-4.4); LYMPH % 4.6 % (27.0-41.0); MEAN CELL VOLUME 91.3 fl (81.0-99.0); MEAN CORPUSCULAR HGB 29.2 pg (27.0-31.0); MEAN PLATELET VOLUME 9.6 fl (9.6-12.3); MONO % 11.8 % (3.0-9.0); NEUT # 6.1 10*3/uL (2.3-7.9); NEUT % 76.2 % (47.0-73.0); PLATELET COUNT AUTOMATED 182 10*3/uL (130-400); RED BLOOD COUNT 3.22 10*6/uL (4.10-5.10); RED CELL DISTRI WIDTH 14.9 % (0-14.5)
[2018-06-14 23:05] LABS: CREATININE 4.17 mg/dL (0.55-1.02); TOTAL PROTEIN 5.8 gm/dL (6.4-8.2)
[2018-06-14 23:41] LABS: BILIRUBIN NEGATIVE (NEGATIVE); BLOOD 2+ (NEGATIVE); CLARITY CLOUDY (CLEAR); COLOR YELLOW (YELLOW); GLUCOSE NEGATIVE (NEGATIVE); KETONE NEGATIVE (NEGATIVE); LEUKO ESTERASE 3+ (NEGATIVE); NITRITE NEGATIVE (NEGATIVE); PH 8.5 (5.0-9.0); SPECIFIC GRAVITY 1.015 (1.005-1.030); UROBILINOGEN 0.2 E.U./dl (0.2-1.0)
[2018-06-15 00:06] LABS: BACTERIA 1+; RBC 21-30 rbc/hpf (0-2); WBC TNTC wbc/hpf (0-5)
[2018-06-15] MEDS ORDERED: AMINOPHYLLIN200 MG PO (00:29)
== END 2018-06-15 01:42 | disposition home or self-care (01) ==
LOC: ED 21:55
PROVIDERS: Physician Assistant
DX: N95.0 Postmenopausal bleeding (principal); N39.0 Urinary tract infection, site not specified; G82.20 Paraplegia, unspecified; F17.200 Nicotine dependence, unspecified, uncomplicated; Z99.2 Dependence on renal dialysis; Z93.3 Colostomy status; Z93.6 Other artificial openings of urinary tract status; Z88.1 Allergy status to other antibiotic agents; Z88.5 Allergy status to narcotic agent; Z88.8 Allergy status to other drugs, medicaments and biological substances; Z79.899 Other long term (current) drug therapy; Z90.49 Acquired absence of other specified parts of digestive tract

== ENCOUNTER 2018-07-31 09:26 | Inpatient (IN) | payer MEDICARE ==
[~2018-07-31] VITALS: Ht 134.6 cm; Wt 42.8 kg
[~2018-07-31 09:26] MED LIST changes: +AMINOPHYLLIN200 MG PO
[2018-07-31 09:29] VITALS: BP 158/83
[2018-07-31 11:17] LABS: BASO # 0.1 10*3/uL (0.0-0.1); BASO % 0.7 % (0.0-1.0); EOS # 0.7 10*3/uL (0.0-0.4); EOS % 6.4 % (1.0-4.0); HEMATOCRIT 23.3 % (37.0-47.0); HEMOGLOBIN 7.3 g/dl (12.0-16.0); LYMPH # 0.4 10*3/uL (1.3-4.4); LYMPH % 3.2 % (27.0-41.0); MEAN CELL VOLUME 94.3 fl (81.0-99.0); MEAN CORPUSCULAR HGB 29.6 pg (27.0-31.0); MEAN CORPUSCULAR HGB CONC 31.3 g/dl (33.0-37.0); MONO # 0.7 10*3/uL (0.1-1.0); MONO % 5.9 % (3.0-9.0); NEUT # 9.7 10*3/uL (2.3-7.9); NEUT % 83.3 % (47.0-73.0); PLATELET COUNT AUTOMATED 181 10*3/uL (130-400); RED BLOOD COUNT 2.47 10*6/uL (4.10-5.10); RED CELL DISTRI WIDTH 17.2 % (0-14.5); WHITE BLOOD COUNT 11.6 10*3/uL (4.8-10.8)
[2018-07-31 11:25] LABS: ACT PARTIAL THROMBO TIME 27.1 SECONDS (20.8-31.5); INTERNATIONAL NORM RATIO 1.1 (2.0-3.5)
[2018-07-31 11:36] LABS: ALBUMIN 2.1 gm/dl (3.1-4.5); CREATININE 6.51 mg/dL (0.55-1.02); POTASSIUM 5.1 mmol/L (3.5-5.1); TOTAL PROTEIN 5.6 gm/dL (6.4-8.2)
[2018-07-31 12:00] VITALS: BP 139/75
[2018-07-31 14:11] VITALS: BP 149/82
[2018-07-31 16:00] VITALS: BP 171/90
[2018-07-31] MEDS ORDERED: KEPPRA250 MG PO (18:18)
[2018-07-31] MEDS ORDERED: Synthroid,Levo75 MCG PO (18:19)
[2018-07-31 20:00] VITALS: BP 149/83
[2018-07-31 21:32] LABS: HEMOGLOBIN 8.8 g/dl (12.0-16.0)
[2018-08-01] VITALS: BP 148/74
[2018-08-01 06:41] LABS: BASO # 0.1 10*3/uL (0.0-0.1); BASO % 0.5 % (0.0-1.0); EOS # 0.6 10*3/uL (0.0-0.4); EOS % 5.3 % (1.0-4.0); HEMATOCRIT 25.3 % (37.0-47.0); LYMPH # 0.3 10*3/uL (1.3-4.4); LYMPH % 2.4 % (27.0-41.0); MEAN CORPUSCULAR HGB 28.6 pg (27.0-31.0); MEAN CORPUSCULAR HGB CONC 31.6 g/dl (33.0-37.0); MEAN PLATELET VOLUME 10.3 fl (9.6-12.3); MONO # 0.9 10*3/uL (0.1-1.0); MONO % 8.6 % (3.0-9.0); NEUT # 8.6 10*3/uL (2.3-7.9); NEUT % 82.9 % (47.0-73.0); PLATELET COUNT AUTOMATED 152 10*3/uL (130-400); RED CELL DISTRI WIDTH 17.8 % (0-14.5); WHITE BLOOD COUNT 10.4 10*3/uL (4.8-10.8)
[2018-08-01 06:43] LABS: ALBUMIN 1.9 gm/dl (3.1-4.5); CREATININE 4.18 mg/dL (0.55-1.02); FREE T4 1.27 ng/dl (0.76-1.46)
[2018-08-01 06:45] LABS: MEAN CELL VOLUME 90.4 fl (81.0-99.0)
[2018-08-01 06:48] LABS: THYROID STIM HORMONE (HS) 1.23 uIU/ml (0.358-4.75)
[2018-08-01 06:50] LABS: POTASSIUM 4.1 mmol/L (3.5-5.1)
[2018-08-01 08:00] VITALS: BP 143/76
[2018-08-01 09:25] LABS: VITAMIN D, 25-HYDROXY 57.4 ng/mL (30-100)
[2018-08-01 12:00] VITALS: BP 149/74
[2018-08-01 12:13] LABS: HEMATOCRIT 25.5 % (37.0-47.0); HEMOGLOBIN 8.1 g/dl (12.0-16.0)
[2018-08-01 16:00] VITALS: BP 138/79
[2018-08-01 20:00] VITALS: BP 149/74
[2018-08-02] VITALS: BP 145/79
[2018-08-02 08:00] VITALS: BP 139/66
[2018-08-02 08:23] LABS: BASO # 0.1 10*3/uL (0.0-0.1); BASO % 0.7 % (0.0-1.0); EOS # 0.3 10*3/uL (0.0-0.4); EOS % 3.7 % (1.0-4.0); HEMATOCRIT 24.6 % (37.0-47.0); HEMOGLOBIN 7.8 g/dl (12.0-16.0); LYMPH # 0.3 10*3/uL (1.3-4.4); MEAN CELL VOLUME 90.8 fl (81.0-99.0); MEAN CORPUSCULAR HGB 28.8 pg (27.0-31.0); MEAN CORPUSCULAR HGB CONC 31.7 g/dl (33.0-37.0); MEAN PLATELET VOLUME 10.2 fl (9.6-12.3); MONO # 0.9 10*3/uL (0.1-1.0); MONO % 10.2 % (3.0-9.0); NEUT # 7.5 10*3/uL (2.3-7.9); NEUT % 82.1 % (47.0-73.0); PLATELET COUNT AUTOMATED 127 10*3/uL (130-400); RED BLOOD COUNT 2.71 10*6/uL (4.10-5.10); RED CELL DISTRI WIDTH 17.7 % (0-14.5); WHITE BLOOD COUNT 9.1 10*3/uL (4.8-10.8)
[2018-08-02 08:44] LABS: ALBUMIN 1.9 gm/dl (3.1-4.5); CREATININE 4.63 mg/dL (0.55-1.02); POTASSIUM 4.8 mmol/L (3.5-5.1)
[2018-08-02 08:45] LABS: PHOSPHOROUS 6.9 mg/dL (2.5-4.9)
[2018-08-02 12:00] VITALS: BP 150/74
[2018-08-02] MEDS ORDERED: MEDROXYPROGESTE10 M1 PO (13:15)
== END 2018-08-02 15:40 | disposition home or self-care (01) | DRG 570 ==
LOC: ED 09:26 → 5E 12:44 → EDHOLD 12:44 → 5E 13:53
PROVIDERS: Emergency Medicine; Internal Medicine; Registered Nurse
PROC: 30233N1 Transfusion of Nonautologous Red Blood Cells into Peripheral Vein, Percutaneous Approach (ICD-10-PCS; principal; 2018-07-31)
PROC: 5A1D70Z Performance of Urinary Filtration, Intermittent, Less than 6 Hours Per Day (ICD-10-PCS; principal; 2018-07-31)
PROC: 0JBM0ZZ Excision of Left Upper Leg Subcutaneous Tissue and Fascia, Open Approach (ICD-10-PCS; 2018-08-01)
DX: L89.224 Pressure ulcer of left hip, stage 4 (principal); N18.6 End stage renal disease; E43 Unspecified severe protein-calorie malnutrition; E87.1 Hypo-osmolality and hyponatremia; Q05.4 Unspecified spina bifida with hydrocephalus; I12.0 Hypertensive chronic kidney disease with stage 5 chronic kidney disease or end stage renal disease; L89.323 Pressure ulcer of left buttock, stage 3; D64.9 Anemia, unspecified; N95.0 Postmenopausal bleeding; F41.8 Other specified anxiety disorders; M19.90 Unspecified osteoarthritis, unspecified site; M54.9 Dorsalgia, unspecified; G89.29 Other chronic pain; G43.909 Migraine, unspecified, not intractable, without status migrainosus; F17.210 Nicotine dependence, cigarettes, uncomplicated; K21.9 Gastro-esophageal reflux disease without esophagitis; E87.8 Other disorders of electrolyte and fluid balance, not elsewhere classified; Z99.2 Dependence on renal dialysis; Z88.1 Allergy status to other antibiotic agents; Z88.5 Allergy status to narcotic agent; Z88.8 Allergy status to other drugs, medicaments and biological substances; Z91.048 Other nonmedicinal substance allergy status; Z86.73 Personal history of transient ischemic attack (TIA), and cerebral infarction without residual deficits; Z86.718 Personal history of other venous thrombosis and embolism; Z87.01 Personal history of pneumonia (recurrent); Z87.440 Personal history of urinary (tract) infections; Z90.5 Acquired absence of kidney; Z90.49 Acquired absence of other specified parts of digestive tract; Z98.1 Arthrodesis status; Z82.49 Family history of ischemic heart disease and other diseases of the circulatory system; Z82.5 Family history of asthma and other chronic lower respiratory diseases; Z83.6 Family history of other diseases of the respiratory system; Z82.0 Family history of epilepsy and other diseases of the nervous system; Z84.89 Family history of other specified conditions; Z79.899 Other long term (current) drug therapy; Z68.23 Body mass index [BMI] 23.0-23.9, adult

== ENCOUNTER → 2018-08-03 | Outpatient (CLI) | payer MEDICARE ==
[~2018-08-03] MED LIST changes: +KEPPRA250 MG PO; +MEDROXYPROGESTE10 M1 PO; +Synthroid,Levo75 MCG PO
== END | disposition home or self-care (01) ==
LOC: MAMMO 12:45
DX: Z12.31 Encounter for screening mammogram for malignant neoplasm of breast (principal); N64.89 Other specified disorders of breast

== ENCOUNTER → 2018-08-10 | Outpatient (CLI) | payer MEDICARE | END | disposition home or self-care (01) | LOC: WOUNDCARE 02:11 | DX: L89.323 Pressure ulcer of left buttock, stage 3 (principal); L89.893 Pressure ulcer of other site, stage 3; Q05.9 Spina bifida, unspecified; N18.6 End stage renal disease; K21.9 Gastro-esophageal reflux disease without esophagitis; M19.90 Unspecified osteoarthritis, unspecified site; M54.9 Dorsalgia, unspecified; G89.29 Other chronic pain; G47.00 Insomnia, unspecified; F41.9 Anxiety disorder, unspecified; F32.9 Major depressive disorder, single episode, unspecified; F17.210 Nicotine dependence, cigarettes, uncomplicated; Z86.73 Personal history of transient ischemic attack (TIA), and cerebral infarction without residual deficits; Z86.718 Personal history of other venous thrombosis and embolism; Z71.6 Tobacco abuse counseling ==

== ENCOUNTER → 2018-09-03 | Outpatient (CLI) | payer MEDICARE | END | disposition home or self-care (01) | LOC: WOUNDCARE 04:00 | DX: L89.323 Pressure ulcer of left buttock, stage 3 (principal); L89.893 Pressure ulcer of other site, stage 3; Q05.9 Spina bifida, unspecified; N18.6 End stage renal disease; F17.200 Nicotine dependence, unspecified, uncomplicated; Z71.6 Tobacco abuse counseling; Z99.2 Dependence on renal dialysis ==

== ENCOUNTER 2018-09-14 10:53 | Emergency (ER) | payer MEDICARE ==
[2018-09-14] VITALS (7 sets, daily range): BP systolic 120–166; BP diastolic 63–93
[~2018-09-14] VITALS: Wt 38.6 kg
[2018-09-14 12:22] LABS: HEMATOCRIT 30.9 % (37.0-47.0); HEMOGLOBIN 9.4 g/dl (12.0-16.0); MEAN CORPUSCULAR HGB 27.1 pg (27.0-31.0); MEAN CORPUSCULAR HGB CONC 30.4 g/dl (33.0-37.0); MEAN PLATELET VOLUME 10.6 fl (9.6-12.3); PLATELET COUNT AUTOMATED 175 10*3/uL (130-400); RED BLOOD COUNT 3.47 10*6/uL (4.10-5.10); RED CELL DISTRI WIDTH 16.5 % (0-14.5); WHITE BLOOD COUNT 32.2 10*3/uL (4.8-10.8)
[2018-09-14 12:35] LABS: ALBUMIN 1.6 gm/dl (3.1-4.5); CREATININE 7.11 mg/dL (0.55-1.02); TOTAL PROTEIN 5.9 gm/dL (6.4-8.2)
[2018-09-14 12:39] LABS: TOTAL CELLS COUNTED 100 #CELLS
[2018-09-14 12:40] LABS: ACANTHOCYTES FEW; BURR CELLS FEW; PLATELET SUFFICIENCY NORMAL (NORMAL); POLYCHROMASIA SLIGHT; SCHISTOCYTES FEW
[2018-09-14 16:35] LABS: BILIRUBIN NEGATIVE (NEGATIVE); BLOOD TRACE-INTACT (NEGATIVE); CLARITY TURBID (CLEAR); COLOR YELLOW (YELLOW); GLUCOSE NEGATIVE (NEGATIVE); KETONE NEGATIVE (NEGATIVE); LEUKO ESTERASE 2+ (NEGATIVE); NITRITE NEGATIVE (NEGATIVE); PH >= 9.0 (5.0-9.0); UROBILINOGEN 0.2 E.U./dl (0.2-1.0)
[2018-09-14 16:51] LABS: BACTERIA 2+; MUCOUS 3+
[2018-09-15 00:16] VITALS: BP 102/60
== END 2018-09-15 00:16 | disposition short-term general hospital (02) ==
LOC: ED 10:53 → EDHOLD 14:09 → ED 14:09 → 4E 14:47 → EDHOLD 14:47 → ED 18:55
PROVIDERS: Nurse Practitioner Family
DX: L89.154 Pressure ulcer of sacral region, stage 4 (principal); L89.223 Pressure ulcer of left hip, stage 3; L89.899 Pressure ulcer of other site, unspecified stage; L08.9 Local infection of the skin and subcutaneous tissue, unspecified; G89.29 Other chronic pain; I12.0 Hypertensive chronic kidney disease with stage 5 chronic kidney disease or end stage renal disease; N18.6 End stage renal disease; K21.9 Gastro-esophageal reflux disease without esophagitis; G43.909 Migraine, unspecified, not intractable, without status migrainosus; F17.200 Nicotine dependence, unspecified, uncomplicated; Z88.1 Allergy status to other antibiotic agents; Z88.5 Allergy status to narcotic agent; Z88.8 Allergy status to other drugs, medicaments and biological substances; Z79.899 Other long term (current) drug therapy; Z99.2 Dependence on renal dialysis; Z86.718 Personal history of other venous thrombosis and embolism; Z86.73 Personal history of transient ischemic attack (TIA), and cerebral infarction without residual deficits; Z93.3 Colostomy status; Z90.49 Acquired absence of other specified parts of digestive tract

== ENCOUNTER 2018-11-08 20:23 | Inpatient (IN) | payer MEDICARE ==
[~2018-11-08] VITALS: Ht 134.6 cm; Wt 36.3 kg
--- NOTE | ~2018-11-08 | EKG ---
[place], [place] ELECTROCARDIOGRAM REPORT NAME: CORINNE METZ UNIT #: [id number] ROOM: [facility] DOCTOR: NADEEN DRAFT REPORT BIRTHDATE: [birth year] [facility] Test Date: 2018-11-08 Test Time: 20:41:56 Pat Name: CORINNE METZ Department: Room: [facility] Gender: F Fondant Puff Maker: Lauren Andujar : 1970 Requested By: AFRICA RODRIGUEZ Order Number: [id number] Reading MD: Hunter Nuñez MD Measurements Intervals [place] Rate: 106 P: 41 RI: 151 QRS: 104 QRSD: 121 T: 8 QT: 387 QTc: 514 Interpretive Statements Sinus tachycardia RBBB and LPFB Electronically Signed On 11-09-2018 8:51:21 PST by Hunter Nuñez MD CM:EKGRPT:ELECTROCARDIOGRAM REPORT [id number] AFRICA SAUCEDO DRAFT REPORT AFRICA RODRIGUEZ DO
[2018-11-08 04:00] VITALS: BP 102/54
[2018-11-08 08:00] VITALS: BP 102/54
[2018-11-08 20:24] VITALS: BP 82/50
[2018-11-08 20:52] LABS: HEMATOCRIT 26.8 % (37.0-47.0); HEMOGLOBIN 8.3 g/dl (12.0-16.0); MEAN CELL VOLUME 93.4 fl (81.0-99.0); MEAN CORPUSCULAR HGB 28.9 pg (27.0-31.0); PLATELET COUNT AUTOMATED 139 10*3/uL (130-400); RED BLOOD COUNT 2.87 10*6/uL (4.10-5.10); RED CELL DISTRI WIDTH 18.1 % (0-14.5); WHITE BLOOD COUNT 29.5 10*3/uL (4.8-10.8)
[2018-11-08 21:10] LABS: ALBUMIN 1.6 gm/dl (3.1-4.5); ALKALINE PHOSPHATASE 128 U/L (45-117); BUN 93 mg/dl (7-24); CHLORIDE 115 mmol/L (98-107); CREATININE 8.61 mg/dL (0.55-1.02); SGOT/AST 23 IU/L (3-35); SGPT/ALT 11 U/L (12-78); SODIUM 143 mmol/L (136-145); TOTAL CELLS COUNTED 100 #CELLS; TOTAL PROTEIN 5.5 gm/dL (6.4-8.2)
[2018-11-08 21:11] LABS: BURR CELLS MODERATE; PLATELET SUFFICIENCY NORMAL (NORMAL)
[2018-11-08 21:16] LABS: TROPONIN I < 0.015 ng/ml (<0.045)
[2018-11-08 23:13] LABS: BILIRUBIN NEGATIVE (NEGATIVE); BLOOD TRACE-INTACT (NEGATIVE); CLARITY TURBID (CLEAR); COLOR YELLOW (YELLOW); GLUCOSE NEGATIVE (NEGATIVE); KETONE NEGATIVE (NEGATIVE); LEUKO ESTERASE NEGATIVE (NEGATIVE); NITRITE NEGATIVE (NEGATIVE); UROBILINOGEN 0.2 E.U./dl (0.2-1.0)
--- NOTE | 2018-11-08 23:16 | NUR ---
i went to attempt iv start pt refused states "im not a pin cushion get out of my room"
--- NOTE | 2018-11-08 23:34 | NUR ---
PT INITALLY UNSECC X1 PT REFUSES ANY FURTHER IV ATTEMPTS DR RODRIGUEZ SPOKE WITH PT CONTINUED TO REFUSE CENTRAL LINE, PT SPOKE WITH GUARD ENTRANCE REGISTRAR ALONE NO PT AGREES TO CENTRAL LINE ATTEMPT, NEED AND RISKS COVERED WITH PT AND GUARD ENTRANCE REGISTRAR BY DR RODRIGUEZ
[2018-11-08 23:41] LABS: BACTERIA 1+
[2018-11-09 00:27] VITALS: BP 104/52
--- NOTE | 2018-11-09 00:33 | NUR ---
DR RODRIGUEZ AT BEDSIDE WITH RN RIGOEBRTO Horvath FOR CENTRAL LINE PLACEMENT.
--- NOTE | 2018-11-09 02:22 | NUR ---
ELEAZAR FLOWERS [phone] JOHN GALLARDO [phone]
[2018-11-09 02:30] VITALS: BP 102/54
--- NOTE | 2018-11-09 02:30 | NUR ---
A 48, admitted to ICCU, under the services of TYLER Pereyra DO with a diagnosis of SEPTIC SHOCK, CELLULITUS. Chief complaint is BACK PAIN, RIB PAIN, WEAKNESS. Patient arrived via stretcher from ER. Monitor applied. Initial assessment completed. Vital signs taken and recorded. TYLER PEREYRA DO notified of admission to the unit. Orders received. See assessment for past medical history, medications and allergies. Patient and/or family oriented to unit. [facility] ICCU visitation policy reviewed. Clothing/patient valuable form completed. CHUCHO GRACE
--- NOTE | 2018-11-09 03:28 | NUR ---
DR. ALYSSA ACOSTA FOR CONSULT.
--- NOTE | 2018-11-09 03:35 | NUR ---
DR. SHAH RECOMMENDS SENDING PATIENT TO [facility].
--- NOTE | 2018-11-09 04:30 | NUR ---
PATIENT TO BE TRANSFERED TO [facility]. SAMI SHIATSU THERAPIST AWARE WELL DR. JUNG AND [employer]400 PROGRAMMER ANALYST. AWAITING A BED ASSIGNMENT.
--- NOTE | 2018-11-09 06:00 | NUR ---
FABIANA COATES AWARE OF POSITIVE BLOOD CULTURES. NURSE TO NURSE REPORT GIVEN TO [facility].
--- NOTE | 2018-11-09 07:35 | NUR ---
Shift chart check completed.24 HR chart check completed.
--- NOTE | 2018-11-09 07:49 | NUR ---
PHYSICAL THERAPY Orders received. PAtient being transferred to [facility]. Thank you for this referral. Leila Nunes,PT
--- NOTE | 2018-11-09 07:51 | NUR ---
Occupational Therapy referral received and chart review completed. Patient to be transferred to [facility] when bed available. Discharge OT. Aixa Sheets OTR/Amy
[2018-11-09 08:00] VITALS: BP 110/70
--- NOTE | 2018-11-09 08:24 | NUR ---
PT HEARD CRYING "HELP". ON ASSESSMENT SHE C/O "BACK PAIN" "SO BAD". TURNED TO HER OPPOSITE SIDE. HER LEFT HIP WOUND/COCCYX DRAINING SEROSANGUINOUS DRAINAGE. UROSTOMY AND COLOSTOMY BAGS IN PLACE. IO IN LEFT LOWER LEG INFUSING SALINE AT 80/HR. TYLENOL BY MOUTH GIVEN FOR DISCOMFORT. NURSE FROM [facility] CALLED ME AND UPDATED REPORT GIVEN. STILL AWAITING [facility] FOR TRANSPORT.
--- NOTE | 2018-11-09 09:09 | NUR ---
RESTING SINCE EARLIER TYLENOL.
--- NOTE | 2018-11-09 09:18 | NUR ---
DR DELUNA NOTIFIED THAT 2ND BLOOD CULTURE IS POSITIVE FOR [facility], AND [facility] IN PRS/CHAINS (THE SAME FIRST SET).
--- NOTE | 2018-11-09 09:41 | NUR ---
[facility] HERE. TRANSFERRED IN STABLE CONDITION WITH ALL OF HER BELONGINGS.
--- NOTE | 2018-11-09 09:44 | NUR ---
[facility] CALLED AND GIVEN UPDATE THAT PT ON HER WAY.
== END 2018-11-09 09:44 | disposition short-term general hospital (02) | DRG 871 ==
LOC: ED 20:23 → EDHOLD 11-09 01:14 → ICCU 11-09 02:00
PROVIDERS: Student in an Organized Health Care Education/Training Program; ADMIT Internal Medicine
DX: A41.9 Sepsis, unspecified organism (principal); N18.6 End stage renal disease; E43 Unspecified severe protein-calorie malnutrition; L03.90 Cellulitis, unspecified; R18.8 Other ascites; I12.0 Hypertensive chronic kidney disease with stage 5 chronic kidney disease or end stage renal disease; R65.20 Severe sepsis without septic shock; L08.9 Local infection of the skin and subcutaneous tissue, unspecified; E87.5 Hyperkalemia; M54.9 Dorsalgia, unspecified; E16.2 Hypoglycemia, unspecified; D64.9 Anemia, unspecified; E87.8 Other disorders of electrolyte and fluid balance, not elsewhere classified; E83.51 Hypocalcemia; R74.8 Abnormal levels of other serum enzymes; L89.150 Pressure ulcer of sacral region, unstageable; R31.21 Asymptomatic microscopic hematuria; G89.29 Other chronic pain; R80.9 Proteinuria, unspecified; G43.909 Migraine, unspecified, not intractable, without status migrainosus; F41.8 Other specified anxiety disorders; K21.9 Gastro-esophageal reflux disease without esophagitis; G47.00 Insomnia, unspecified; M19.90 Unspecified osteoarthritis, unspecified site; Z99.2 Dependence on renal dialysis; Z88.1 Allergy status to other antibiotic agents; Z86.718 Personal history of other venous thrombosis and embolism; Z86.73 Personal history of transient ischemic attack (TIA), and cerebral infarction without residual deficits; Z90.49 Acquired absence of other specified parts of digestive tract; Z90.5 Acquired absence of kidney; Z82.5 Family history of asthma and other chronic lower respiratory diseases; Z82.49 Family history of ischemic heart disease and other diseases of the circulatory system; Z84.89 Family history of other specified conditions; Z82.0 Family history of epilepsy and other diseases of the nervous system; Z88.8 Allergy status to other drugs, medicaments and biological substances; Z88.5 Allergy status to narcotic agent; Z79.899 Other long term (current) drug therapy; Z68.20 Body mass index [BMI] 20.0-20.9, adult

== ENCOUNTER → 2018-11-08 | Outpatient (CLI) | payer MEDICARE | END | disposition home or self-care (01) | LOC: LAB 20:32 | DX: K52.9 Noninfective gastroenteritis and colitis, unspecified (principal) ==

== ENCOUNTER 2018-11-22 21:28 | Emergency (ER) | payer MEDICARE ==
[2018-11-22 21:40] VITALS: BP 176/92
== END 2018-11-22 22:15 | disposition home or self-care (01) ==
LOC: ED 21:28
DX: Z43.1 Encounter for attention to gastrostomy (principal); F17.200 Nicotine dependence, unspecified, uncomplicated; G43.909 Migraine, unspecified, not intractable, without status migrainosus; G89.29 Other chronic pain; M19.90 Unspecified osteoarthritis, unspecified site; I12.0 Hypertensive chronic kidney disease with stage 5 chronic kidney disease or end stage renal disease; N18.6 End stage renal disease; Z99.2 Dependence on renal dialysis; Z86.718 Personal history of other venous thrombosis and embolism; Z79.899 Other long term (current) drug therapy; Z90.49 Acquired absence of other specified parts of digestive tract; Z98.890 Other specified postprocedural states; Z88.1 Allergy status to other antibiotic agents; Z88.5 Allergy status to narcotic agent; Z86.73 Personal history of transient ischemic attack (TIA), and cerebral infarction without residual deficits; Z88.8 Allergy status to other drugs, medicaments and biological substances

== ENCOUNTER 2018-11-23 17:28 | Emergency (ER) | payer MEDICARE ==
[~2018-11-23] VITALS: Wt 27.2 kg
--- NOTE | ~2018-11-23 | EKG ---
[place], [place] ELECTROCARDIOGRAM REPORT NAME: CORINNE METZ UNIT #: [id number] ROOM: DOCTOR: EPIPHDANIELLA DRAFT REPORT BIRTHDATE: [birth year] [facility] Test Date: 2018-11-23 Test Time: 18:26:18 Pat Name: CORINNE METZ Department: Room: Gender: F Manufacturing Planner: : 1970 Requested By: SAMI EDWARDS Order Number: [id number] Reading MD: Measurements Intervals [place] Rate: 64 P: [place]: QRS: 117 QRSD: 98 T: -32 QT: 638 QTc: 659 Interpretive Statements Junctional rhythm Low voltage, extremity and precordial leads Minimal ST depression, anterolateral leads Borderline ST elevation, inferior leads Prolonged QT interval Compared to ECG 11/08/2018 20:41:56 Junctional rhythm now present Low QRS voltage now present ST (T wave) deviation now present Prolonged QT interval now present Sinus tachycardia no longer present Left posterior fascicular block no longer present Right bundle-branch block no longer present CM:EKGRPT:ELECTROCARDIOGRAM REPORT [id number] SAMI SAUCEDO DRAFT REPORT SAMI EDWARDS DO
--- NOTE | ~2018-11-23 | O ---
[place], [place] OPERATIVE NOTE NAME: CORINNE METZ UNIT #: [id number] ROOM: DOCTOR: MARIANA ELLSWORTH CRNA BIRTHDATE: [birth year] DOS: 11/23/2018 Anesthesia was called to ER trauma bay to intubate the patient for CVA type symptoms, GCS at 3. When I arrived, the patient's saturation was 100%, preoxygenated, infused 60 mg of propofol, intubated under direct laryngoscopy. A 7.0 tube, 21 cm at the lip line, positive end-tidal capnography. Positive bilateral breath sounds. Saturation maintained at 100% throughout the procedure. Pollard 2 blade utilized. Mariana Ellsworth CRNA CM:OPRECORD:OPERATIVE NOTE 1022 1037 MARIANA ELLSWORTH CRNA 11/26/18 1402 interface
[2018-11-23 17:49] LABS: HEMATOCRIT 27.9 % (37.0-47.0); HEMOGLOBIN 8.2 g/dl (12.0-16.0); MEAN CELL VOLUME 101.5 fl (81.0-99.0); MEAN CORPUSCULAR HGB 29.8 pg (27.0-31.0); MEAN CORPUSCULAR HGB CONC 29.4 g/dl (33.0-37.0); MEAN PLATELET VOLUME 12.8 fl (9.6-12.3); NUCLEATED RED BLOOD CELL 0.1 10*3/uL (0.0-0.0); NUCLEATED RED BLOOD CELL 0.8 % (0.0-0.0); PLATELET COUNT AUTOMATED 77 10*3/uL (130-400); RED BLOOD COUNT 2.75 10*6/uL (4.10-5.10); RED CELL DISTRI WIDTH 24.1 % (0-14.5); WHITE BLOOD COUNT 6.1 10*3/uL (4.8-10.8)
[2018-11-23 17:59] LABS: BILIRUBIN NEGATIVE (NEGATIVE); BLOOD NEGATIVE (NEGATIVE); CLARITY SL CLOUDY (CLEAR); COLOR YELLOW (YELLOW); GLUCOSE NEGATIVE (NEGATIVE); KETONE TRACE (NEGATIVE); LEUKO ESTERASE NEGATIVE (NEGATIVE); NITRITE NEGATIVE (NEGATIVE); UROBILINOGEN 0.2 E.U./dl (0.2-1.0)
[2018-11-23 18:05] LABS: ALBUMIN 1.3 gm/dl (3.1-4.5); CREATININE 2.64 mg/dL (0.55-1.02); POTASSIUM 3.8 mmol/L (3.5-5.1); TROPONIN I 0.044 ng/ml (<0.045)
[2018-11-23 18:07] LABS: BACTERIA 1+; YEAST 4+
[2018-11-23 18:09] LABS: POLYCHROMASIA SLIGHT; TOTAL CELLS COUNTED 100 #CELLS; TOXIC GRANULATION MODERATE
[2018-11-23 18:10] LABS: BURR CELLS MODERATE; PLATELET SUFFICIENCY LOW (NORMAL); SCHISTOCYTES FEW
[2018-11-23 18:24] LABS: ABG HCO3 21.2 mmol/l (22-26); ARTERIAL BLOOD GAS PCO2 61.1 mmHg (35-45)
[2018-11-23 18:29] LABS: ABG BASE EXCESS -7.6 mmol/L (-2.0-2.0)
[2018-11-23 18:30] LABS: ARTERIAL BLOOD GAS PH 7.155 (7.35-7.45)
[2018-11-23 23:51] VITALS: BP 116/71; BP 116/72; BP 118/71; BP 119/73; BP 121/73; BP 121/74; BP 121/75; BP 121/76; BP 122/73; BP 122/76; BP 123/73; BP 123/74; BP 124/74
== END 2018-11-23 22:00 ==
LOC: ED 17:28
PROVIDERS: Emergency Medicine; Student in an Organized Health Care Education/Training Program
DX: R40.20 Unspecified coma (principal); F17.200 Nicotine dependence, unspecified, uncomplicated; G89.29 Other chronic pain; I12.0 Hypertensive chronic kidney disease with stage 5 chronic kidney disease or end stage renal disease; N18.6 End stage renal disease; G43.909 Migraine, unspecified, not intractable, without status migrainosus; K21.9 Gastro-esophageal reflux disease without esophagitis; M19.90 Unspecified osteoarthritis, unspecified site; Z79.899 Other long term (current) drug therapy; Z88.5 Allergy status to narcotic agent; Z93.3 Colostomy status; Z90.49 Acquired absence of other specified parts of digestive tract; Z98.890 Other specified postprocedural states; Z99.2 Dependence on renal dialysis; Z86.718 Personal history of other venous thrombosis and embolism; Z86.73 Personal history of transient ischemic attack (TIA), and cerebral infarction without residual deficits; Z88.8 Allergy status to other drugs, medicaments and biological substances; Z88.1 Allergy status to other antibiotic agents